=== PATIENT | female | born 1990 | race Caucasian/White ===

== ENCOUNTER 2016-07-05 09:02 | Emergency (ER) | payer OTHER ==
[2016-07-05 09:08] VITALS: BP 110/63
--- NOTE | 2016-07-05 09:32 | ER Document Report ---
HPI - HPI Pain Level: 3 Context: 26 yo female c/o rash to face and back x 2 days. developed after playing outside with her children. + known poison blake in yard. rash is pruritc and burning. no swelling to eyes or mouth. no difficulty speaking or swallowing. no cough or shortness of breath Associated Symptoms: None Exacerbated by: Denies Relieved by: Denies Similar symptoms previously: Yes Recently seen / treated by doctor: No - ROS Systems Reviewed and Negative: Yes All other systems reviewed and negative - REPRODUCTIVE Reproductive: DENIES: : - DERM Skin Color: Normal Past Medical History - General Information source: Patient - Social History Smoking Status: Current Every Day Smoker Chew tobacco use (# tins/day): No Frequency of alcohol use: Social Drug Abuse: None Lives with: Family Family History: Reviewed & Not Pertinent Patient has suicidal ideation: No Patient has homicidal ideation: No - Past Medical History Cardiac Medical History: Reports: None Neurological Medical History: Denies: Hx Seizures Renal/ Medical History: Denies: Hx Peritoneal Dialysis Psychiatric Medical History: Reports: Hx Attention Deficit Hyperactivity Disorder Past Surgical History: Denies: Hx Hysterectomy, Hx Pacemaker - Immunizations Hx Diphtheria, Pertussis, Tetanus Vaccination: No Vertical Provider Document - CONSTITUTIONAL Agree With Documented VS: Yes Exam Limitations: No Limitations - INFECTION CONTROL TRAVEL OUTSIDE OF THE [place] IN LAST 30 DAYS: No - HEENT HEENT: Atraumatic, PERRLA. negative: Pharyngeal Tenderness - NECK Neck: Normal Inspection, Supple - RESPIRATORY Respiratory: Breath Sounds Normal, No Respiratory Distress O2 Sat by Pulse Oximetry: 99 - CARDIOVASCULAR Cardiovascular: Regular Rate, Regular Rhythm - NEURO Level of Consciousness: Awake, Alert, Appropriate - DERM Integumentary: Warm, Dry, Rash - erythematous clustered vesicular rash to chin and upper mid back. not a dermatomal distribution Course - Vital Signs Vital signs: Temp Pulse Resp BP Pulse Ox 97.7 F 71 16 110/63 99 07/05/16 09:06 07/05/16 09:06 07/05/16 09:06 07/05/16 09:06 07/05/16 09:06 Discharge - Discharge Clinical Impression: Contact dermatitis Qualifiers: Contact dermatitis type: unspecified Contact dermatitis trigger: unspecified trigger Qualified Code(s): L25.9 - Unspecified contact dermatitis, unspecified cause Disposition: HOME, SELF-CARE Instructions: Contact Dermatitis ([facility]), Steroid Medication, Topical Steroid Cream or Ointment ([facility]), Use of Diphenhydramine Additional Instructions: Your exam is consistent with contact dermatitis Topical and Oral steroids as prescribed cool compresses with Domboro's solution prior to topical steroid application will expedite healing You may take oral Benadryl to help with itching Follow up with your primary care if symptoms do not improve or worsen Prescriptions: Calcium Acetate/Aluminum Sulf [[place] Packet] 1 packet TP TID PRN #30 packet PRN Reason: Hydrocortisone Valerate [Westcort] 1 applic TP BID #30 g Prednisone [Deltasone 10 mg Tablet] 10 mg PO ASDIR PRN #21 tablet PRN Reason:
== END 2016-07-05 09:32 | disposition home or self-care (01) ==
LOC: ER 09:02
DX: L25.9 Unspecified contact dermatitis, unspecified cause (principal); F17.200 Nicotine dependence, unspecified, uncomplicated
CPT/HCPCS: 99282

== ENCOUNTER 2017-09-05 05:25 | Emergency (ER) | payer OTHER ==
[2017-09-05] MEDS ORDERED: DIPH/PERTUSS(ACELL)/TETANUS VAC/PF 0.5 ML SYR (>=10YO) IM ONE (06:25)
--- NOTE | 2017-09-05 06:50 | RADIOLOGY REPORT (SQ) ---
EXAM DESCRIPTION: HAND RIGHT 3 VIEWS CLINICAL HISTORY: foreign body base 4th digit COMPARISON: None. FINDINGS: 3 views of the right hand. No acute fracture or dislocation. Normal osseous mineralization. No radiopaque foreign body identified. IMPRESSION: 1. No radiopaque foreign body identified.
[2017-09-05] MEDS ORDERED: LIDOCAINE 1% INJ-PF (10 MG/ML) 30 ML SDV INJ ONE (07:00)
--- NOTE | 2017-09-05 07:24 | ER Document Report ---
ED General - General Chief Complaint: Hand Injury Stated Complaint: RIGHT HAND PAIN Time Seen by Provider: 09/05/17 06:12 Mode of Arrival: Ambulatory Information source: Patient Notes: 27-year-old female presents with complaints of right hand pain. Patient notes she had a splinter in it about 3 or 4 weeks ago it was hurting a little bit but over the past week now it is hurting more intermittently will become red and then the redness goes away patient denies any fevers or chills denies any drainage she pulled the splinter out and said he was quite superficial TRAVEL OUTSIDE OF THE [place] IN LAST 30 DAYS: No - HPI Onset: Other Onset/Duration: Persistent Quality of pain: Achy Severity: Mild Pain Level: 1 Associated symptoms: Other Exacerbated by: Movement Relieved by: Denies Similar symptoms previously: No Recently seen / treated by doctor: No - Related Data Allergies/Adverse Reactions: poison blake extract Allergy (Verified 07/05/16 09:05) Past Medical History - Social History Smoking Status: Current Every Day Smoker Cigarette use (# per day): Yes Chew tobacco use (# tins/day): No Smoking Education Provided: No Frequency of alcohol use: Occasional Family History: Reviewed & Not Pertinent Patient has suicidal ideation: No Patient has homicidal ideation: No Neurological Medical History: Denies: Hx Seizures Renal/ Medical History: Denies: Hx Peritoneal Dialysis Psychiatric Medical History: Reports: Hx Attention Deficit Hyperactivity Disorder Past Surgical History: Reports: Hx Appendectomy, Hx Tonsillectomy. Denies: Hx Hysterectomy, Hx Pacemaker - Immunizations Hx Diphtheria, Pertussis, Tetanus Vaccination: No Review of Systems - Review of Systems Notes: REVIEW OF SYSTEMS: CONSTITUTIONAL : Denies fever, chills, or sweats. Denies recent illness. EENT: Denies eye, ear, throat, or mouth pain or symptoms. Denies nasal or sinus congestion or discharge. Denies throat, tongue, or mouth swelling or difficulty swallowing. CARDIOVASCULAR: Denies chest pain. Denies palpitations or racing or irregular heart beat. Denies ankle edema. RESPIRATORY: Denies cough, cold, or chest congestion. Denies shortness of breath, difficulty breathing, or wheezing. GASTROINTESTINAL: Denies abdominal pain or distention. Denies nausea, vomiting , or diarrhea. Denies blood in vomitus, stools, or per rectum. Denies black, tarry stools. Denies constipation. GENITOURINARY: Denies difficulty urinating, painful urination, burning, frequency, blood in urine, or discharge. FEMALE GENITOURINARY: Denies vaginal bleeding, heavy or abnormal periods, irregular periods. Denies vaginal discharge or odor. MUSCULOSKELETAL: Denies back or neck pain or stiffness. Denies joint pain or swelling. SKIN: Admits to right hand pain HEMATOLOGIC : Denies easy bruising or bleeding. LYMPHATIC: Denies swollen, enlarged glands. NEUROLOGICAL: Denies confusion or altered mental status. Denies passing out or loss of consciousness. Denies dizziness or lightheadedness. Denies headache. Denies weakness or paralysis or loss of use of either side. Denies problems with gait or speech. Denies sensory loss, numbness, or tingling. Denies seizures. PSYCHIATRIC: Denies anxiety or stress. Denies depression, suicidal ideation, or homicidal ideation. ALL OTHER SYSTEMS REVIEWED AND NEGATIVE. PHYSICAL EXAMINATION: GENERAL: Well-appearing, well-nourished and in no acute distress. HEAD: Atraumatic, normocephalic. EYES: Pupils equal round extraocular movements intact, conjunctiva are normal. ENT: Nares patent NECK: Normal range of motion LUNGS: No respiratory distress Musculoskeletal: Normal range of motion NEUROLOGICAL: Normal speech, normal gait. PSYCH: Normal mood, normal affect. SKIN: Scab with firm mass mid palmar fourth digit Dictation was performed using [employer] voice recognition software Physical Exam - Vital signs Vitals: Temp Pulse Resp BP Pulse Ox 97.8 F 71 20 124/67 99 09/05/17 05:54 09/05/17 05:54 09/05/17 05:54 09/05/17 05:54 09/05/17 05:54 Course - Re-evaluation Re-evalutation: 09/05/17 07:43 Area was anesthetized incise the patient's request, no foreign body was noted, x -ray also noted no foreign body, I believe this is all scar tissue related and is pushing on the tendon causing the patient pain, she has full range of motion. Station, she otherwise looks well, patient had been sleeping the whole time in the emergency department and only really woken to pain stimuli, Given that I did not find any foreign body, I did clean extensively to make sure they get infected, I will give her follow-up with orthopedic surgeon for further evaluation care After performing a Medical Screening Examination, I estimate there is LOW risk for OPEN FRACTURE, COMPARTMENT SYNDROME, TENDON RUPTURE, ACUTE NEUROVASCULAR INJURY, or RETAINED FOREIGN BODY, thus I consider the discharge disposition reasonable. Also, there is no evidence or peritonitis, sepsis, or toxicity. I have reevaluated this patient multiple times and no significant life threatening changes are noted. The patient and I have discussed the diagnosis and risks, and we agree with discharging home with close follow-up with the understanding that symptoms and presentations can change. We also discussed returning to the Emergency Department immediately if new or worsening symptoms occur. We have discussed the symptoms which are most concerning (e.g., changing or worsening pain, fever, numbness, weakness, cool or painful digits) that necessitate immediate return. - Vital Signs Vital signs: Temp Pulse Resp BP Pulse Ox 97.8 F 71 20 124/67 99 09/05/17 05:54 09/05/17 05:54 09/05/17 05:54 09/05/17 05:54 09/05/17 05:54 - Diagnostic Test Radiology reviewed: Image reviewed - No foreign body noted, Reports reviewed Procedures - Incision and Drainage Right Hand Time completed: 07:05 Type: Simple Anesthetic type: 1% Lidocaine mL's of anesthetic: 5 Blade size: 11 I&D procedure: Betadine prep applied, Sterile dressing applied Incision Method: Incision made by scalpel Amount/type of drainage: Small amount of blood noted no foreign body no pus Discharge - Discharge Clinical Impression: Hand pain, right Condition: Stable Disposition: HOME, SELF-CARE Additional Instructions: At this time no foreign body or pus is noted from the incision, return immediately if symptoms worsen please follow-up with the hand surgeon for further care Referrals: FABIEN WASHINGTON DO [ACTIVE STAFF] - Follow up as needed
[2017-09-05 08:29] VITALS: BP 118/76
== END 2017-09-05 08:07 | disposition home or self-care (01) ==
LOC: ER 05:25
PROC: 0H9FXZZ Drainage of Right Hand Skin, External Approach (ICD-10-PCS; principal; 2017-09-05)
DX: M79.641 Pain in right hand (principal); F17.210 Nicotine dependence, cigarettes, uncomplicated
CPT/HCPCS: 90715; 99284

== ENCOUNTER 2017-10-05 20:05 | Emergency (ER) | payer OTHER ==
[2017-10-05 20:19] VITALS: BP 113/56
--- NOTE | 2017-10-05 21:18 | ER Document Report ---
HPI - HPI Patient complains to provider of: Cough, abdominal pain Onset: Last week Onset/Duration: Persistent Quality of pain: Achy Pain Level: 3 Context: Patient presents complaining of nonproductive cough for the past month. Patient also reports nausea with right upper quadrant abdominal pain for the past week. Patient denies any fever. Associated Symptoms: Nonproductive cough, Nausea, Other - Abdominal pain. denies: Chest pain, Fever, Vomiting Exacerbated by: Denies Relieved by: Denies Similar symptoms previously: No Recently seen / treated by doctor: No - ROS ROS below otherwise negative: Yes Systems Reviewed and Negative: Yes All other systems reviewed and negative - CONSTITUTIONAL Constitutional: DENIES: Fever, Chills - EENT EENT: DENIES: Sore Throat, Ear Pain, Eye problems - NEURO Neurology: DENIES: Headache, Weakness, Vision blurred - RESPIRATORY Respiratory: REPORTS: Coughing. DENIES: Trouble Breathing - GASTROINTESTINAL Gastrointestinal: REPORTS: Abdominal Pain, Nausea. DENIES: Patient vomiting, Diarrhea, Black / Bloody Stools - URINARY Urinary: DENIES: Dysuria, Urgency, Frequency - REPRODUCTIVE Reproductive: DENIES: : - MUSCULOSKELETAL Musculoskeletal: DENIES: Extremity pain, Back Pain - DERM Skin Color: Normal Skin Problems: None Past Medical History - General Information source: Patient - Social History Smoking Status: Never Smoker Lives with: Family Family History: Reviewed & Not Pertinent Patient has suicidal ideation: No Patient has homicidal ideation: No Neurological Medical History: Denies: Hx Seizures Renal/ Medical History: Denies: Hx Peritoneal Dialysis Psychiatric Medical History: Reports: Hx Attention Deficit Hyperactivity Disorder Past Surgical History: Reports: Hx Appendectomy, Hx Tonsillectomy. Denies: Hx Hysterectomy, Hx Pacemaker - Immunizations Hx Diphtheria, Pertussis, Tetanus Vaccination: No Vertical Provider Document - CONSTITUTIONAL Agree With Documented VS: Yes Exam Limitations: No Limitations General Appearance: WD/WN, No Apparent Distress - INFECTION CONTROL TRAVEL OUTSIDE OF THE [place] IN LAST 30 DAYS: No - HEENT HEENT: Atraumatic, Normal ENT Exam, Normocephalic - NECK Neck: Normal Inspection, Supple - RESPIRATORY Respiratory: No Respiratory Distress, Chest Non-Tender, Rhonchi - clears with cough - CARDIOVASCULAR Cardiovascular: Regular Rate, Regular Rhythm, No Murmur - GI/ABDOMEN Gastrointestinal: Abdomen Soft, Abdomen Tender - RUQ, Normal Bowel Sounds. negative: Abdominal Guarding - BACK Back: Normal Inspection. negative: CVA Tenderness-Right, CVA Tenderness-Left - MUSCULOSKELETAL/EXTREMETIES Musculoskeletal/Extremeties: JACQUI GONZALEZ - NEURO Level of Consciousness: Awake, Alert, Appropriate Motor/Sensory: No Motor Deficit - DERM Integumentary: Warm, Dry, No Rash Course - Re-evaluation Re-evalutation: 10/06/17 00:30 Patient updated regarding the wait time as we are having technical difficulties in obtaining radiology reports. Patient resting comfortably denies any needs at this time. 10/06/17 01:30 Patient not in room 31 where patient was left by RN, patient not in the main waiting room either, RN suspects that patient eloped. 10/06/17 03:48 Reviewed patient's ultrasound findings as well as diagnostic tests with Dr. Alas. States that patient should be advised to follow-up with surgeon as an outpatient. Patient called and advised of ultrasound report and need for prompt follow-up with a surgeon. Discussed worsening signs or symptoms that patient should return immediately for. Patient verbalized understanding and is appreciative of call. Patient was getting outpatient surgical clinic office number and address. - Vital Signs Vital signs: Temp Pulse Resp BP Pulse Ox 98.2 F 67 18 113/56 L 97 10/05/17 20:15 10/05/17 20:15 10/05/17 20:15 10/05/17 20:15 10/05/17 20:15 - Laboratory Result Diagrams: 10/05/17 21:35 10/05/17 21:35 Laboratory results interpreted by me: 10/06/17 02:18 Labs- Entire Visit 10/05/17 10/05/17 10/05/17 21:35 21:35 21:35 WBC 9.4 RBC 4.84 Hgb 14.0 Hct 41.7 MCV 86 MCH 28.9 MCHC 33.6 RDW 13.3 Plt Count 220 Seg Neutrophils % 60.1 Lymphocytes % 30.0 Monocytes % 7.4 Eosinophils % 1.4 Basophils % 1.1 Absolute Neutrophils 5.7 Absolute Lymphocytes 2.8 Absolute Monocytes 0.7 Absolute Eosinophils 0.1 Absolute Basophils 0.1 Sodium 144.2 Potassium 4.8 Chloride 106 Carbon Dioxide 31 H Anion Gap 7 BUN 10 Creatinine 0.52 Est GFR ( Amer) > 60 Est GFR (Non-Af Amer) > 60 Glucose 99 Calcium 9.3 Total Bilirubin 0.1 L Direct Bilirubin 0.1 Neonat Total Bilirubin Not Reportable Neonat Direct Bilirubin Not Reportable Neonat Indirect Bili Not Reportable AST 26 ALT 38 Alkaline Phosphatase 82 Total Protein 6.9 Albumin 4.1 Lipase 95.6 Serum HCG, Qual NEGATIVE Urine Color Urine Appearance Urine pH Ur Specific [place] Urine Protein Urine Glucose (UA) Urine Ketones Urine Blood Urine Nitrite Urine Bilirubin Urine Urobilinogen Ur Leukocyte Esterase Urine WBC (Auto) Urine RBC (Auto) Amorphous Sediment Auto Urine Mucus (Auto) Urine Ascorbic Acid 10/05/17 21:35 WBC RBC Hgb Hct MCV MCH MCHC RDW Plt Count Seg Neutrophils % Lymphocytes % Monocytes % Eosinophils % Basophils % Absolute Neutrophils Absolute Lymphocytes Absolute Monocytes Absolute Eosinophils Absolute Basophils Sodium Potassium Chloride Carbon Dioxide Anion Gap BUN Creatinine Est GFR ( Amer) Est GFR (Non-Af Amer) Glucose Calcium Total Bilirubin Direct Bilirubin Neonat Total Bilirubin Neonat Direct Bilirubin Neonat Indirect Bili AST ALT Alkaline Phosphatase Total Protein Albumin Lipase Serum HCG, Qual Urine Color YELLOW Urine Appearance SLIGHTLY-CLOUDY Urine pH 6.0 Ur Specific [place] 1.025 Urine Protein NEGATIVE Urine Glucose (UA) NEGATIVE Urine Ketones NEGATIVE Urine Blood NEGATIVE Urine Nitrite NEGATIVE Urine Bilirubin NEGATIVE Urine Urobilinogen 4.0 H Ur Leukocyte Esterase SMALL H Urine WBC (Auto) 45 Urine RBC (Auto) 4 Amorphous Sediment Auto TRACE Urine Mucus (Auto) MANY Urine Ascorbic Acid 40 H - Diagnostic Test Radiology reviewed: Reports reviewed Discharge - Discharge Clinical Impression: Abdominal pain Qualifiers: Abdominal location: right upper quadrant Qualified Code(s): R10.11 - Right upper quadrant pain Upper respiratory infection Qualifiers: URI type: unspecified URI Qualified Code(s): J06.9 - Acute upper respiratory infection, unspecified Disposition: ELOPED
[2017-10-05 21:56] LABS: ABSOLUTE EOSINOPHILS # (AUTO) 0.1 10^3/uL (0.0-0.6); ABSOLUTE LYMPHOCYTES (AUTO) 2.8 10^3/uL (0.5-4.7); ABSOLUTE MONOCYTES (AUTO) 0.7 10^3/uL (0.1-1.4); ABSOLUTE NEUT (AUTO) 5.7 10^3/uL (1.7-8.2); BASOPHILS % (AUTO) 1.1 % (0-2); EOSINOPHILS % (AUTO) 1.4 % (0-6); HEMATOCRIT 41.7 % (36.0-47.0); MEAN CORPUSCULAR HEMOGLOBIN 28.9 pg (27.0-33.4); MEAN CORPUSCULAR HGB CONC 33.6 g/dL (32.0-36.0); MEAN CORPUSCULAR VOLUME 86 fl (80-97); MONOCYTES % (AUTO) 7.4 % (3-13); PLATELET COUNT 220 10^3/uL (150-450); RED BLOOD COUNT 4.84 10^6/uL (3.72-5.28); RED CELL DISTRIBUTION WIDTH 13.3 % (11.5-14.0); SEGMENTED NEUTROPHILS % (AUTO) 60.1 % (42-78); TOTAL CELLS COUNTED % (AUTO) 100 %; WHITE BLOOD COUNT 9.4 10^3/uL (4.0-10.5)
[2017-10-05 21:57] LABS: ABSOLUTE BASOPHILS # (AUTO) 0.1 10^3/uL (0.0-0.2)
[2017-10-05 22:07] LABS: AMORPHOUS SEDIMENT,URINE TRACE /HPF; APPEARANCE,URINE SLIGHTLY-CLOUDY; BILIRUBIN,URINE NEGATIVE (NEGATIVE); COLOR,URINE YELLOW; GLUCOSE, URINE NEGATIVE (NEGATIVE); KETONES,URINE NEGATIVE (NEGATIVE); LEUKOCYTE ESTERASE,URINE SMALL (NEGATIVE); NITRITE,URINE NEGATIVE (NEGATIVE); PROTEIN,URINE NEGATIVE (NEGATIVE); URINE SPECIFIC GRAVITY 1.025
[2017-10-05 22:10] LABS: ALANINE AMINOTRANSFERASE 38 U/L (9-52); ALBUMIN 4.1 g/dL (3.5-5.0); ALKALINE PHOSPHATASE 82 U/L (38-126); ANION GAP 7 (5-19); ASPARTATE AMINO TRANSFERASE 26 U/L (14-36); BILIRUBIN,DIRECT 0.1 mg/dL (0.0-0.4); BILIRUBIN,TOTAL 0.1 mg/dL (0.2-1.3); BLOOD UREA NITROGEN 10 mg/dL (7-20); CALCIUM 9.3 mg/dL (8.4-10.2); CARBON DIOXIDE 31 mmol/L (22-30); CHLORIDE 106 mmol/L (98-107); GLUCOSE 99 mg/dL (75-110); LIPASE 95.6 U/L (23-300); POTASSIUM 4.8 mmol/L (3.6-5.0); SODIUM 144.2 mmol/L (137-145); TOTAL PROTEIN 6.9 g/dL (6.3-8.2)
--- NOTE | 2017-10-05 22:20 | RADIOLOGY REPORT (SQ) ---
EXAM DESCRIPTION: CHEST 2 VIEWS COMPLETED DATE/TIME: 10/05/2017 9:51 pm REASON FOR STUDY: RUQ pain COMPARISON: None. EXAM PARAMETERS: NUMBER OF VIEWS: two views TECHNIQUE: Digital Frontal and Lateral radiographic views of the chest acquired. RADIATION DOSE: NA LIMITATIONS: none FINDINGS: LUNGS AND PLEURA: No opacities, masses or pneumothorax. No pleural effusion. MEDIASTINUM AND HILAR STRUCTURES: No masses or contour abnormalities. HEART AND VASCULAR STRUCTURES: Heart normal size. No evidence for failure. BONES: No acute findings. Old left lateral 10th rib fracture. HARDWARE: None in the chest. OTHER: No other significant finding. IMPRESSION: NO ACUTE RADIOGRAPHIC FINDING IN THE CHEST. TECHNICAL DOCUMENTATION: JOB ID: [id number] [id number] 2010 [employer]- All Rights Reserved Reading location - IP/workstation name: [employer]
--- NOTE | 2017-10-06 03:10 | RADIOLOGY REPORT (SQ) ---
EXAM DESCRIPTION: U/S ABDOMEN LIMITED W/O DOP COMPLETED DATE/TIME: 10/05/2017 11:00 pm REASON FOR STUDY: RUQ pain COMPARISON: None. TECHNIQUE: Dynamic and static grayscale images acquired of the abdomen and recorded on PACS. Kyrao sadie selected color Doppler and spectral images recorded. LIMITATIONS: None. FINDINGS: PANCREAS: No masses. Visualized pancreatic duct normal caliber. LIVER: No masses. Echotexture normal. LIVER VASCULATURE: Normal directional flow of the main portal vein and hepatic veins. GALLBLADDER: Contracted. Thickened wall at 3.4 mm. No identified stones. ULTRASOUND-DETECTED COOL'S SIGN: Negative. INTRAHEPATIC DUCTS AND COMMON DUCT: CBD and intrahepatic ducts normal caliber. No filling defects. INFERIOR VENA CAVA: Normal flow. AORTA: No aneurysm. RIGHT KIDNEY: Normal size. Normal echogenicity. No solid or suspicious masses. No hydronephrosis. No calcifications. PERITONEAL AND RIGHT PLEURAL SPACE: No ascites or effusions. OTHER: No other significant findings. IMPRESSION: Contracted gallbladder with thickened wall. No obvious stones. TECHNICAL DOCUMENTATION: JOB ID: [id number] [employer]- All Rights Reserved Reading location - IP/workstation name: [email or web address]
== END 2017-10-06 00:20 | disposition left against medical advice (07) ==
LOC: ER 20:05
DX: J06.9 Acute upper respiratory infection, unspecified (principal); R10.11 Right upper quadrant pain; R05 Cough; R11.0 Nausea; Z90.49 Acquired absence of other specified parts of digestive tract; Z53.20 Procedure and treatment not carried out because of patient's decision for unspecified reasons
CPT/HCPCS: 36415; 71046; 76705; 80053; 81001; 83690; 84703; 85025; 87086; 99281

== ENCOUNTER 2017-10-06 14:40 | Emergency (ER) | payer OTHER ==
--- NOTE | 2017-10-06 16:11 | ER Document Report ---
HPI - HPI Pain Level: 4 Notes: Patient is a 27-year-old female who presents to the ED complaining of right upper quadrant pain over the last 2 weeks with an occasional cough. Patient was evaluated last night but eloped prior to her imaging results being read as radiology was having technological issues. Patient was called this morning and according to the notes the conversation read that she was to follow-up with surgery as an outpatient. Patient instead presented here. Patient states that she has not had any acute changes in her symptoms. She is still able to eat and drink without any difficulties. She is urinating normally. Patient does state that she does have some loose stool. She denies any drug allergies. Patient does admit to smoking but denies IV drug use. Her ultrasound from yesterday read contracted bladder with thickening of the wall without gallstones. Her CBC, CMP were unremarkable for any acute pathology. Denies any headache, fever, neck pain, URI, sore throat, chest pain, palpitations, syncope, cough, shortness of breath, wheeze, dyspnea, nausea/vomiting, urinary retention, dysuria, hematuria, back pain, loss of control of bowel or bladder, numbness/tingling, muscle paralysis/weakness, or rash. - ROS Systems Reviewed and Negative: Yes All other systems reviewed and negative - REPRODUCTIVE Reproductive: DENIES: : Past Medical History - Social History Smoking Status: Current Every Day Smoker Family History: Reviewed & Not Pertinent Neurological Medical History: Denies: Hx Seizures Renal/ Medical History: Denies: Hx Peritoneal Dialysis Psychiatric Medical History: Reports: Hx Attention Deficit Hyperactivity Disorder Past Surgical History: Reports: Hx Appendectomy, Hx Tonsillectomy. Denies: Hx Hysterectomy, Hx Pacemaker - Immunizations Hx Diphtheria, Pertussis, Tetanus Vaccination: No Vertical Provider Document - CONSTITUTIONAL Agree With Documented VS: Yes Notes: PHYSICAL EXAMINATION: GENERAL: Well-appearing, well-nourished and in no acute distress. Answers questions appropriately. Moves comfortably. HEAD: Atraumatic, normocephalic. EYES: Pupils equal round and reactive to light, extraocular movements intact, sclera anicteric, conjunctiva are normal. ENT: Nares patent and without discharge. oropharynx clear without exudates. No tonsilar hypertrophy or erythema. Moist mucous membranes. NECK: Normal range of motion, supple without lymphadenopathy LUNGS: Breath sounds clear to auscultation bilaterally and equal. No wheezes rales or rhonchi. HEART: Regular rate and rhythm without murmurs, rubs, gallops. ABDOMEN: Soft, nontender, nondistended abdomen. No guarding, no rebound. No masses appreciated. Normal bowel sounds present. No CVA tenderness bilaterally. Urena negative. No tenderness at McBurney point. Musculoskeletal: FROM to passive/active. Strength 5+/5. Extremities: No cyanosis, clubbing, or edema b/l. Peripheral pulses 2+. Capillary refill less than 3 seconds. NEUROLOGICAL: Normal speech, normal gait. Normal sensory, motor exams PSYCH: Normal mood, normal affect. SKIN: Warm, Dry, normal turgor, no rashes or lesions noted. - INFECTION CONTROL TRAVEL OUTSIDE OF THE [place] IN LAST 30 DAYS: No Course - Re-evaluation Re-evalutation: 10/06/17 16:13 Patient is an afebrile, well-hydrated, 27-year-old female who presents to the ED with right upper quadrant pain, suspect possible gallbladder etiology. Vitals are acceptable. PE is otherwise unremarkable. I did review previous labs and imaging from last night and I did consult with the surgeon Dr. Ceballos. He states that she will need to be n.p.o. for 12 hours with a recheck of an ultrasound at that time as you cannot have a thickened wall with a contracted gallbladder, but this can be done as an outpatient and follow-up in their office. Patient is tolerating p.o. without any difficulties. Her abdomen is otherwise soft and nontender at this time. Lab work was unremarkable from last evening. Her last p.o. intake was 1-2 hours ago. Conservative measures otherwise for symptoms. Recheck with a general surgeon's office in 2-3 days. Recheck with your PCM in 1 week as well. Return to the ED with any worsening/ concerning symptoms otherwise as reviewed discharge. Patient is in agreement. - Vital Signs Vital signs: Temp Pulse Resp BP Pulse Ox 98.0 F 70 20 132/79 H 99 10/06/17 14:43 10/06/17 14:43 10/06/17 14:43 10/06/17 14:43 10/06/17 14:43 Discharge - Discharge Clinical Impression: RUQ pain Condition: Stable Disposition: HOME, SELF-CARE Instructions: Low-Fat Diet ([facility]) Additional Instructions: Remain NPO for 12 hours then repeat the US. Schedule an appointment with general surgery later this week Low fat diet Maintain fluid intake Tylenol/ibuprofen as needed Monitor symptoms Recheck with PCM in 1 week as well Return to the ED with any worsening symptoms and/or development of fever, headache, chest pain, palpitations, syncope, shortness of breath, trouble breathing, abdominal pain, n/v/d, blood in stool/urine, loss of control of bowel /bladder, urinary retention, muscle weakness/paralysis, saddle anesthesia, numbness/tingling, or other worsening symptoms that are concerning to you. Forms: Follow-Up Radiology Testing Referrals: ANA CRISTINA MCKEE MD [ACTIVE STAFF] - Follow up in 3-5 days
[2017-10-06] MEDS ORDERED: HYDROCODONE/ACETAMINOPHEN 5-325 MG (6 TAB/ER DISP) PO PRN (16:20)
[2017-10-06 16:44] VITALS: BP 115/81
== END 2017-10-06 16:45 | disposition home or self-care (01) ==
LOC: ER 14:40
DX: R10.11 Right upper quadrant pain (principal); R05 Cough; F17.200 Nicotine dependence, unspecified, uncomplicated
CPT/HCPCS: 99283

== ENCOUNTER 2018-03-18 07:45 | Emergency (ER) | payer OTHER ==
[2018-03-18 07:54] VITALS: BP 131/83
[2018-03-18] MEDS ORDERED: IBUPROFEN 800 MG TABLET PO ONE (08:05)
[2018-03-18] MEDS ORDERED: PSEUDOEPHEDRINE HCL 30 MG TABLET PO ONE (08:05)
--- NOTE | 2018-03-18 08:06 | ER Document Report ---
HPI - HPI Patient complains to provider of: Cough Onset: Other - 2 weeks Onset/Duration: Persistent Quality of pain: Achy Pain Level: 4 Context: Patient presents complaining of cough for the past 2 weeks. Patient states she has had some sinus congestion. Patient denies any fever. Patient also complains of pruritic skin rash to her neck and was around someone who had been in contact with poison blake. Patient suspects that she has poison blake to her neck. Associated Symptoms: Nonproductive cough, Sinus pain/drainage. denies: Earache , Fever Exacerbated by: Denies Relieved by: Denies Similar symptoms previously: Yes Recently seen / treated by doctor: No - ROS ROS below otherwise negative: Yes Systems Reviewed and Negative: Yes All other systems reviewed and negative - CONSTITUTIONAL Constitutional: DENIES: Fever - EENT EENT: REPORTS: Nasal Drainage-Clear, Congestion - CARDIOVASCULAR Cardiovascular: DENIES: Chest pain - RESPIRATORY Respiratory: REPORTS: Coughing. DENIES: Trouble Breathing - GASTROINTESTINAL Gastrointestinal: DENIES: Nausea, Patient vomiting - REPRODUCTIVE Reproductive: DENIES: : - MUSCULOSKELETAL Musculoskeletal: DENIES: Back Pain - DERM Skin Color: Normal Skin Problems: Rash Past Medical History - General Information source: Patient - Social History Smoking Status: Current Every Day Smoker Smoking Education Provided: Yes Frequency of alcohol use: Occasional Drug Abuse: Marijuana Occupation: none Lives with: Family Family History: Reviewed & Not Pertinent - Medical History Medical History: Negative Neurological Medical History: Denies: Hx Seizures Renal/ Medical History: Denies: Hx Peritoneal Dialysis Psychiatric Medical History: Reports: Hx Attention Deficit Hyperactivity Disorder Past Surgical History: Reports: Hx Appendectomy, Hx Gynecologic Surgery - ectopic, Hx Tonsillectomy. Denies: Hx Hysterectomy, Hx Pacemaker - Immunizations Hx Diphtheria, Pertussis, Tetanus Vaccination: No Vertical Provider Document - CONSTITUTIONAL Agree With Documented VS: Yes Exam Limitations: No Limitations General Appearance: WD/WN, No Apparent Distress - INFECTION CONTROL TRAVEL OUTSIDE OF THE [place] IN LAST 30 DAYS: No - HEENT HEENT: Atraumatic, Normocephalic. negative: Pharyngeal Exudate, Pharyngeal Tenderness, Pharyngeal Erythema, Tympanic Membrane Red, Tympanic Membrane Bulging Notes: clear rhinorrhea - NECK Neck: Normal Inspection, Supple. negative: Lymphadenopathy-Left, Lymphadenopathy-Right - RESPIRATORY Respiratory: No Respiratory Distress, Chest Non-Tender, Rhonchi - CARDIOVASCULAR Cardiovascular: Regular Rate, Regular Rhythm, No Murmur - GI/ABDOMEN Gastrointestinal: Abdomen Soft, Abdomen Non-Tender - BACK Back: Normal Inspection - MUSCULOSKELETAL/EXTREMETIES Musculoskeletal/Extremeties: JACQUI GONZALEZ - NEURO Level of Consciousness: Awake, Alert, Appropriate Motor/Sensory: No Motor Deficit - DERM Integumentary: Warm, Dry, No Rash Course - Re-evaluation Re-evalutation: 03/18/18 08:52 Patient respirations unlabored, patient continues with occasional dry cough, no concern for pneumonia or pneumothorax. Good return precautions given. - Vital Signs Vital signs: Temp Pulse Resp BP Pulse Ox 98.1 F 108 H 20 131/83 H 97 03/18/18 07:51 03/18/18 07:51 03/18/18 07:51 03/18/18 07:51 03/18/18 07:51 - Diagnostic Test Radiology reviewed: Reports reviewed Discharge - Discharge Clinical Impression: Bronchitis Contact dermatitis Qualifiers: Contact dermatitis type: unspecified Contact dermatitis trigger: non-food plants Qualified Code(s): L25.5 - Unspecified contact dermatitis due to plants, except food Condition: Stable Disposition: HOME, SELF-CARE Additional Instructions: Return immediately for any new or worsening symptoms Followup with your primary care provider, call tomorrow to make a followup appointment BRONCHITIS: You have acute bronchitis. This disease is an infection or inflammation of the air passageways in your lungs. Symptoms usually include cough, low grade fever, shortness of breath, and wheezing. The cough usually persists for a couple of weeks. Most cases of bronchitis get better without antibiotics. We prescribe antibiotics when we believe bacteria are damaging your airways, or if there's high risk the bronchitis will worsen into pneumonia. Increase your fluid intake. A cool mist humidifier may make your lungs more comfortable. An expectorant (cough medicine that loosens phlegm) can help. If you smoke, STOP!!! Recovery from bronchitis can be somewhat slow, but you should see improvement within a day or two. Repeated episodes of bronchitis may result in lung damage -- for example, chronic bronchitis, recurrent pneumonias, or emphysema. Call the doctor if you develop increasing fever, shortness of breath, chest pain, bloody sputum, or otherwise worsen. If you have not improved at all after several days, contact the physician. INHALED BRONCHODILATORS: You have received a treatment of and/or prescription for an inhaled bronchodilator -- a medication which stimulates the airways in the lung to dilate. This improves the flow of air in asthma, bronchitis, and emphysema. These medicines have some similarity to adrenaline, and can cause similar side effects: shakiness, racing heart, and a sense of nervousness. These side effects decrease with time. Contact your doctor if these side effects are severe. Do not over-use the medicine. Too-frequent use of the inhaler may make it ineffective. Call your doctor if the inhaler is not controlling your symptoms at the prescribed doses. STEROID MEDICATION: You have been given an injection of or oral medicine of the cortisone/ steroid class. This medication is used to control inflammation or allergy. José Miguel t is usually only given for a short period of time, until the acute process subsides. There are usually no side effects from short-term use of cortisone-like medications. Some persons feel an increased sense of well-being and are not sleepy at bedtime. Long-term use of cortisone medications is best avoided, unless required for a severe condition. If your condition does not remit, or relapses after the course of corticosteroid medication, you should consult your physician. USE OF ACETAMINOPHEN (Tylenol): Acetaminophen may be taken for pain relief or fever control. It's much safer than aspirin, offering a wider range of "safe" dosages. It is safe during . Some brand names are Tylenol, Panadol, Datril, Anacin 3, Tempra, and Liquiprin. Acetaminophen can be repeated every four hours. The following are maximum recommended dosages: >89 pounds or adults 650 mg to 900 mg Acetaminophen can be repeated every four hours. Maximum dose not to exceed 4000 mg a day. SMOKING: If you smoke, you should stop smoking. The tar and chemicals in cigarette smoke are harmful. Smoking has been shown to cause: emphysema chronic bronchitis lung cancer mouth and throat cancer stomach and pancreas cancer premature aging defects In addition, smoking increases ear and lung infections in children of smokers. FOLLOW-UP CARE: If you have been referred to a physician for follow-up care, call the physician s office for an appointment as you were instructed or within the next two days. If you experience worsening or a significant change in your symptoms, notify the physician immediately or return to the Emergency Department at any time for re-evaluation. Prescriptions: Albuterol Sulfate [Ventolin Hfa] 2 puff IH Q4HP PRN #17 gm PRN Reason: Dextromethorphan Polistirex [Delsym] 60 mg PO Q12 PRN #120 ml PRN Reason: Naproxen [Naprosyn 250 Nmg Tablet] 1 tab PO BID #14 tablet Prednisone [Deltasone 10 mg Tablet] 10 mg PO ASDIR PRN #21 tablet PRN Reason: Forms: Smoking Cessation Education Referrals: [facility] [Provider Group] - Follow up tomorrow
--- NOTE | 2018-03-18 08:45 | RADIOLOGY REPORT (SQ) ---
EXAM DESCRIPTION: CHEST 2 VIEWS COMPLETED DATE/TIME: 03/18/2018 8:29 am REASON FOR STUDY: cough COMPARISON: None. EXAM PARAMETERS: NUMBER OF VIEWS: two views TECHNIQUE: Digital Frontal and Lateral radiographic views of the chest acquired. RADIATION DOSE: NA LIMITATIONS: none FINDINGS: LUNGS AND PLEURA: No opacities, masses or pneumothorax. No pleural effusion. MEDIASTINUM AND HILAR STRUCTURES: No masses or contour abnormalities. HEART AND VASCULAR STRUCTURES: Heart normal size. No evidence for failure. BONES: No acute findings. HARDWARE: None in the chest. OTHER: No other significant finding. IMPRESSION: NO ACUTE RADIOGRAPHIC FINDING IN THE CHEST. TECHNICAL DOCUMENTATION: JOB ID: [id number] [employer]- All Rights Reserved Reading location - IP/workstation name: [email or web address]
== END 2018-03-18 09:11 | disposition home or self-care (01) ==
LOC: ER 07:45
DX: J40 Bronchitis, not specified as acute or chronic (principal); L25.5 Unspecified contact dermatitis due to plants, except food; F17.200 Nicotine dependence, unspecified, uncomplicated
CPT/HCPCS: 71046; 99283

== ENCOUNTER 2018-05-09 14:28 | Emergency (ER) | payer OTHER ==
[2018-05-09] MEDS ORDERED: RINGERS SOLUTION,LACTATED 1,000 ML IV ONE (15:40)
[2018-05-09 16:09] LABS: APPEARANCE,URINE SLIGHTLY-CLOUDY; BILIRUBIN,URINE NEGATIVE (NEGATIVE); COLOR,URINE YELLOW; GLUCOSE, URINE NEGATIVE (NEGATIVE); KETONES,URINE NEGATIVE (NEGATIVE); LEUKOCYTE ESTERASE,URINE TRACE (NEGATIVE); NITRITE,URINE NEGATIVE (NEGATIVE); PROTEIN,URINE NEGATIVE (NEGATIVE); URINE SPECIFIC GRAVITY 1.018
--- NOTE | 2018-05-09 16:09 | RADIOLOGY REPORT (SQ) ---
EXAM DESCRIPTION: HAND BILATERAL 3 VIEWS COMPLETED DATE/TIME: 05/09/2018 4:00 pm REASON FOR STUDY: pain injury COMPARISON: None. EXAM PARAMETERS: NUMBER OF VIEWS: Three views right hand. Three views left hand. TECHNIQUE: AP, lateral and oblique radiographic images acquired of bilateral hands. LIMITATIONS: None. FINDINGS: RIGHT HAND: MINERALIZATION: Normal. BONES: No acute fracture or dislocation. No worrisome bone lesions. No significant osteophytes. JOINTS: No erosions. No randolph-articular osteopenia. No chondrocalcinosis. SOFT TISSUES: No swelling. No calcifications. OTHER: No other significant finding. LEFT HAND: MINERALIZATION: Normal. BONES: No acute fracture or dislocation. No worrisome bone lesions. No significant osteophytes. JOINTS: No erosions. No randolph-articular osteopenia. No chondrocalcinosis. SOFT TISSUES: No swelling. No calcifications. OTHER: No other significant finding. IMPRESSION: NEGATIVE STUDY BILATERAL HANDS. NO ACUTE POST-TRAUMATIC CHANGES. NO EXPLANATION FOR PAIN . TECHNICAL DOCUMENTATION: JOB ID: [id number] [employer]- All Rights Reserved Reading location - IP/workstation name: [email or web address]
[2018-05-09 16:15] LABS: ANION GAP 12 (5-19); BLOOD UREA NITROGEN 11 mg/dL (7-20); CALCIUM 9.4 mg/dL (8.4-10.2); CARBON DIOXIDE 27 mmol/L (22-30); CHLORIDE 101 mmol/L (98-107); GLUCOSE 89 mg/dL (75-110); POTASSIUM 4.8 mmol/L (3.6-5.0); SODIUM 139.7 mmol/L (137-145)
[2018-05-09 16:24] LABS: ALCOHOL < 10 mg/dL (NONE DETECTED)
--- NOTE | 2018-05-09 17:19 | ER Document Report ---
ED General - General Chief Complaint: Dizziness Stated Complaint: HAND INJURY Time Seen by Provider: 05/09/18 15:34 TRAVEL OUTSIDE OF THE [place] IN LAST 30 DAYS: No - HPI Patient complains to provider of: Dizziness and hand injury Notes: Patient coming in for multiple complaints. Patient states dizziness and feeling dehydrated states that she was drinking alcohol heavily at night prior to arrival. Patient also is coming from bilateral hand injury. Patient states her right hand was injured approximate 4 days ago whenever she was helping friends cabinetry states that her hand got caught between the rectum and treat his obvious abrasions across all 4 fingers including the thumb. Patient also has a small abrasion to the right hand on the index finger patient states this occurred in another incident however does not reveal any other information. Patient otherwise looks to be nontoxic upon my evaluation resting comfortably - Related Data Allergies/Adverse Reactions: No Known Drug Allergies Allergy (Verified 05/09/18 15:26) poison blake extract Allergy (Verified 05/09/18 15:26) Past Medical History - Social History Smoking Status: Current Every Day Smoker Frequency of alcohol use: Social Drug Abuse: Methamphetamine Family History: Reviewed & Not Pertinent Patient has suicidal ideation: No Patient has homicidal ideation: No Neurological Medical History: Denies: Hx Seizures Renal/ Medical History: Denies: Hx Peritoneal Dialysis Psychiatric Medical History: Reports: Hx Attention Deficit Hyperactivity Disorder Past Surgical History: Reports: Hx Appendectomy, Hx Gynecologic Surgery - ectopic, Hx Tonsillectomy. Denies: Hx Hysterectomy, Hx Pacemaker - Immunizations Hx Diphtheria, Pertussis, Tetanus Vaccination: No Review of Systems - Review of Systems Constitutional: Other - Dizziness EENT: No symptoms reported Cardiovascular: No symptoms reported Respiratory: No symptoms reported Gastrointestinal: No symptoms reported Genitourinary: No symptoms reported Female Genitourinary: No symptoms reported Musculoskeletal: Other - Bilateral hand injuries Skin: No symptoms reported Hematologic/Lymphatic: No symptoms reported Neurological/Psychological: No symptoms reported -: Yes All other systems reviewed and negative Physical Exam - Vital signs Vitals: Temp Pulse Resp BP Pulse Ox 98.4 F 77 18 117/67 100 05/09/18 14:35 05/09/18 14:35 05/09/18 14:35 05/09/18 14:35 05/09/18 14:35 Interpretation: Normal - General General appearance: Appears well, Alert - HEENT Head: Normocephalic, Atraumatic Eyes: Normal Pupils: PERRL - Respiratory Respiratory status: No respiratory distress Chest status: Nontender Breath sounds: Normal Chest palpation: Normal - Cardiovascular Rhythm: Regular Heart sounds: Normal auscultation Murmur: No - Abdominal Inspection: Normal Distension: No distension Bowel sounds: Normal Tenderness: Nontender Organomegaly: No organomegaly - Back Back: Normal, Nontender - Extremities General upper extremity: Nontender, Normal color, Normal ROM, Normal temperature. No: Normal inspection - Multiple abrasions across the second third fourth fifth digits on the right hand small abrasion on the second digit on left hand range of motion bilateral hands is slowed but is intact. Capillary refill bilateral hands is intact as well General lower extremity: Normal inspection, Nontender, Normal color, Normal ROM , Normal temperature, Normal weight bearing. No: Cristi's sign - Neurological Neuro grossly intact: Yes Cognition: Normal Orientation: AAOx4 Aiden Coma Scale Eye Opening: Spontaneous [place] Coma Scale Verbal: Oriented [place] Coma Scale Motor: Obeys Commands [place]iden Coma Scale Total: 15 Speech: Normal Motor strength normal: LUE, RUE, LLE, RLE Sensory: Normal - Psychological Associated symptoms: Normal affect, Normal mood - Skin Skin Temperature: Warm Skin Moisture: Dry Skin Color: Normal Course - Re-evaluation Re-evalutation: 05/09/18 19:25 X-rays are negative for any acute fracture. Examination of the hands other than the abrasion site no signs of any significant pathology. Patient laboratory studies also not reveal any critical pathology. Patient was given Compazine for home for any nausea and dizziness that she may experience. Patient is recommended to stay well-hydrated abstaining from alcohol return to ER symptoms worsen. - Vital Signs Vital signs: Temp Pulse Resp BP Pulse Ox 98.2 F 58 L 16 115/73 100 05/09/18 17:22 05/09/18 17:22 05/09/18 17:22 05/09/18 17:22 05/09/18 17:22 - Laboratory Result Diagrams: 05/09/18 15:48 Laboratory results interpreted by me: 05/09/18 15:48 Urine Urobilinogen 2.0 H Ur Leukocyte Esterase TRACE H Discharge - Discharge Clinical Impression: Bilateral hand abrasions, Dizziness Condition: Good Disposition: HOME, SELF-CARE Instructions: Abrasions ([facility]), Dizziness ([facility]) Additional Instructions: Your x-rays did not show any signs of fracture at this time. Would recommend placing triple antibiotic ointment on your abrasions. Laboratory studies not show any critical pathology at this time please make sure you are drinking plenty of fluids to stay well-hydrated I would abstain from drinks that are high caffeine also abstain from any alcohol. Prescriptions: Ibuprofen [Motrin 600 mg Tablet] 600 mg PO Q8HP PRN #21 tablet PRN Reason: Prochlorperazine Maleate [Compazine] 5 mg PO Q6 #30 tablet Prochlorperazine Maleate [Compazine] 5 mg PO Q6 #30 tablet Forms: Return to Work
[2018-05-09 17:24] VITALS: BP 115/73
== END 2018-05-09 17:24 | disposition home or self-care (01) ==
LOC: ER 14:28
DX: S60.512A Abrasion of left hand, initial encounter (principal); S60.511A Abrasion of right hand, initial encounter; R42 Dizziness and giddiness; X58.XXXA Exposure to other specified factors, initial encounter; F17.200 Nicotine dependence, unspecified, uncomplicated
CPT/HCPCS: 99284; 96360; 36415; 80307; 84703; 80048; 81001; 73130; J7120

== ENCOUNTER 2018-08-09 22:29 | Emergency (ER) | payer OTHER ==
[2018-08-10 05:05] LABS: ABSOLUTE BASOPHILS # (AUTO) 0.1 10^3/uL (0.0-0.2); ABSOLUTE EOSINOPHILS # (AUTO) 0.1 10^3/uL (0.0-0.6); ABSOLUTE LYMPHOCYTES (AUTO) 2.1 10^3/uL (0.5-4.7); ABSOLUTE MONOCYTES (AUTO) 0.6 10^3/uL (0.1-1.4); ABSOLUTE NEUT (AUTO) 4.5 10^3/uL (1.7-8.2); BASOPHILS % (AUTO) 1.1 % (0-2); EOSINOPHILS % (AUTO) 1.4 % (0-6); HEMOGLOBIN 13.6 g/dL (12.0-15.5); LYMPHOCYTES % (AUTO) 28.8 % (13-45); MEAN CORPUSCULAR HEMOGLOBIN 29.2 pg (27.0-33.4); MEAN CORPUSCULAR HGB CONC 34.8 g/dL (32.0-36.0); MEAN CORPUSCULAR VOLUME 84 fl (80-97); MONOCYTES % (AUTO) 8.3 % (3-13); PLATELET COUNT 152 10^3/uL (150-450); RED BLOOD COUNT 4.65 10^6/uL (3.72-5.28); RED CELL DISTRIBUTION WIDTH 13.8 % (11.5-14.0); SEGMENTED NEUTROPHILS % (AUTO) 60.4 % (42-78); TOTAL CELLS COUNTED % (AUTO) 100 %; WHITE BLOOD COUNT 7.4 10^3/uL (4.0-10.5)
[2018-08-10 05:22] LABS: APPEARANCE,URINE CLEAR; BILIRUBIN,URINE NEGATIVE (NEGATIVE); COLOR,URINE YELLOW; GLUCOSE, URINE NEGATIVE (NEGATIVE); KETONES,URINE NEGATIVE (NEGATIVE); LEUKOCYTE ESTERASE,URINE TRACE (NEGATIVE); NITRITE,URINE NEGATIVE (NEGATIVE); PROTEIN,URINE NEGATIVE (NEGATIVE); UROBILINOGEN,URINE NEGATIVE mg/dL (<2.0)
[2018-08-10] MEDS ORDERED: CEPHALEXIN 500 MG CAPSULE PO ONE (07:02)
[2018-08-10 07:05] LABS: EPITHELIALS (WET MOUNT) 3+ EPITHELIALS SEEN; RBCS (WET MOUNT) NO RBCS SEEN; T.VAGINALIS (WET MOUNT) NO TRICHOMONAS SEEN; WBCS (WET MOUNT) NO WBCS SEEN; YEAST (WET MOUNT) NO YEAST SEEN
--- NOTE | 2018-08-10 07:08 | ER Document Report ---
Addendum entered and electronically signed by BENITEZ STAHL NP 08/10/18 11:35: Course - Re-evaluation Re-evalutation: 08/10/18 11:35 Patient vomited x1. Patient states that she does not feel that she vomited the medication. Medications ordered for nausea. - Vital Signs Vital signs: Temp Pulse Resp BP Pulse Ox 97.8 F 56 L 14 95/41 L 100 08/10/18 09:57 08/10/18 09:57 08/10/18 09:57 08/10/18 09:57 08/10/18 09:57 - Laboratory Result Diagrams: 08/10/18 04:48 Laboratory results interpreted by me: 08/10/18 08/10/18 08/10/18 04:48 04:48 06:11 Beta HCG, Quant [id number] H Ur Leukocyte Esterase TRACE H Urine Ascorbic Acid 40 H N.gonorrhoeae DNA (PCR) DETECTED H Addendum entered and electronically signed by BENITEZ STAHL NP 08/10/18 10:26: Course - Re-evaluation Re-evalutation: 08/10/18 10:25 RN into discharge patient and patient hypotensive. Patient not symptomatic with hypotension at this time. Incidentally patient does have positive gonorrhea test results that have not been treated. Will give antibiotics in addition to IV fluid bolus and reevaluate patient status afterwards. Patient updated regarding positive gonorrhea test and the need to have her partner treated. - Vital Signs Vital signs: Temp Pulse Resp BP Pulse Ox 97.8 F 56 L 14 95/41 L 100 08/10/18 09:57 08/10/18 09:57 08/10/18 09:57 08/10/18 09:57 08/10/18 09:57 - Laboratory Result Diagrams: 08/10/18 04:48 Laboratory results interpreted by me: 08/10/18 08/10/18 08/10/18 04:48 04:48 06:11 Beta HCG, Quant [id number] H Ur Leukocyte Esterase TRACE H Urine Ascorbic Acid 40 H N.gonorrhoeae DNA (PCR) DETECTED H Discharge - Discharge Clinical Impression: Gonorrhea Genital herpes Qualifiers: Herpes simplex infection site: unspecified Qualified Code(s): A60.00 - Herpesviral infection of urogenital system, unspecified Qualifiers: Weeks of gestation: 8 weeks Qualified Code(s): Z3A.08 - 8 weeks gestation of Urinary tract infection Qualifiers: Urinary tract infection type: acute cystitis Hematuria presence: without hematuria Qualified Code(s): N30.00 - Acute cystitis without hematuria Condition: Stable Disposition: HOME, SELF-CARE Instructions: Acyclovir ([facility]), Cephalexin ([facility]), Genital Herpes ([facility]), Urinary Tract Infection ([facility]) Additional Instructions: As we discussed you have been seen and treated in the emergency department due to your genital herpes. I am giving you a medication called acyclovir. This will help treat your herpes outbreak. As we discussed at length it is unknown if acyclovir is safe in . You have chosen that you would like to use it as a treatment. Please make sure you follow-up with your primary care provider and S[facility]IOR [facility] ENGINEER in the next 24-48 hours. Your urine also shows slight signs of infection. Because you are I will treat you with a medication called Keflex. Please take it as prescribed. Prescriptions: Acyclovir [Acyclovir 400 mg Tablet] 400 mg PO TID 5 Days tablet Cephalexin Monohydrate [Keflex 500 mg Capsule] 500 mg PO BID 7 Days #14 capsule Referrals: LADRAIUS HENNESSY MD [Primary Care Provider] - Follow up as needed Original Note: ED General - General Chief Complaint: Other Stated Complaint: PELVIC PAIN Time Seen by Provider: 08/10/18 05:05 Primary Care Provider: LADARIUS HENNESSY MD [Primary Care Provider] - Follow up as needed Notes: Patient is a 28-year-old female presents to the emergency department for a vagin al sore. Patient states she has had a sore for the last 36 hours and states that it is getting worse. Patient is denying any vaginal discharge or vaginal bleeding. States her last menstrual period was on 06/13/2018 and she believes she is 8 weeks . Patient states she is . Patient initially presented to nursing staff that she was requesting a RhoGam shot. States she knows that she is Rh- and needs a RhoGam shot. Upon further questioning in the emergency department patient states that was "a cover up" states she is really here due to the lesion on her groin. Nursing staff had already put in protocols, CBC, CMP, urine, hCG, RhoGam testing. That had already been resulted upon my examination of the patient. RhoGam is indicated. Past medical history: Genital herpes Medications: None Allergies: None TRAVEL OUTSIDE OF THE [place] IN LAST 30 DAYS: No - Related Data Allergies/Adverse Reactions: No Known Drug Allergies Allergy (Verified 05/09/18 15:26) poison blake extract Allergy (Verified 05/09/18 15:26) Past Medical History - General Information source: Patient - Social History Smoking Status: Unknown if Ever Smoked Family History: Reviewed & Not Pertinent Neurological Medical History: Denies: Hx Seizures Renal/ Medical History: Denies: Hx Peritoneal Dialysis Psychiatric Medical History: Reports: Hx Attention Deficit Hyperactivity Disorder Past Surgical History: Reports: Hx Appendectomy, Hx Gynecologic Surgery - ectopic, Hx Tonsillectomy. Denies: Hx Hysterectomy, Hx Pacemaker - Immunizations Hx Diphtheria, Pertussis, Tetanus Vaccination: No Review of Systems - Review of Systems Constitutional: No symptoms reported EENT: No symptoms reported Cardiovascular: No symptoms reported Respiratory: No symptoms reported Gastrointestinal: No symptoms reported Genitourinary: No symptoms reported Female Genitourinary: No symptoms reported Musculoskeletal: No symptoms reported Skin: See HPI Hematologic/Lymphatic: No symptoms reported Neurological/Psychological: No symptoms reported Physical Exam - Vital signs Vitals: Temp Pulse Resp BP Pulse Ox 99.0 F 66 20 121/53 L 100 08/09/18 23:07 08/09/18 23:07 08/09/18 23:07 08/09/18 23:07 08/09/18 23:07 - Notes Notes: GENERAL: Alert, interacts well. No acute distress. HEAD: Normocephalic, atraumatic. EYES: Pupils equal, round, and reactive to light. Extraocular movements intact. ENT: Oral mucosa moist, tongue midline. NECK: Full range of motion. Supple. Trachea midline. LUNGS: Clear to auscultation bilaterally, no wheezes, rales, or rhonchi. No respiratory distress. HEART: Regular rate and rhythm. No murmur ABDOMEN: Soft, non-tender. Non-distended. Bowel sounds present in all 4 quadrants. EXTREMITIES: Moves all 4 extremities spontaneously. No edema, normal radial and dorsalis pedis pulses bilaterally. No cyanosis. BACK: no cervical, thoracic, lumbar midline tenderness. No saddle anesthesia, normal distal neurovascular exam. NEUROLOGICAL: Alert and oriented x3. Normal speech. cranial nerves II through XII grossly intact PSYCH: Normal affect, normal mood. SKIN: Warm, dry, normal turgor. Erythematous based vesicular lesions noted 1:00 on the labia minora. Pelvic: Scant clear discharge noted in the cul-de-sac, no cervical motion tenderness, no adnexal tenderness noted bilaterally. Course - Re-evaluation Re-evalutation: 08/10/18 07:13 Discussed waiting for patient's gonorrhea and Chlamydia testing to be confirmed prior to treating her prophylactically with antibiotics due to her . Patient voices understanding and states she wishes to do that since she has no vaginal discharge or itching. Discussed that acyclovir which is the treatment for herpes is controversial in the first trimester of . Discussed that this is not her first outbreak and that is my recommendation that she tries to not take any medications. Patient states "I did not come to the emergency room for nothing." Patient is requesting treatment at this time. Discussed with her risks versus benefits to her unborn child, patient voices understanding and is requesting treatment for her general herpes. Patient's urine also noted to have a slight infection, sent for culture, will treat with Keflex due to her . - Vital Signs Vital signs: Temp Pulse Resp BP Pulse Ox 99.0 F 69 20 111/65 100 08/09/18 23:07 08/10/18 04:58 08/10/18 04:58 08/10/18 04:58 08/10/18 04:58 - Laboratory Result Diagrams: 08/10/18 04:48 Laboratory results interpreted by me: 08/10/18 08/10/18 04:48 04:48 Beta HCG, Quant [id number] H Ur Leukocyte Esterase TRACE H Urine Ascorbic Acid 40 H Discharge - Discharge Clinical Impression: Genital herpes Qualifiers: Herpes simplex infection site: unspecified Qualified Code(s): A60.00 - Herpesviral infection of urogenital system, unspecified Qualifiers: Weeks of gestation: 8 weeks Qualified Code(s): Z3A.08 - 8 weeks gestation of Urinary tract infection Qualifiers: Urinary tract infection type: acute cystitis Hematuria presence: without hematuria Qualified Code(s): N30.00 - Acute cystitis without hematuria Condition: Stable Disposition: HOME, SELF-CARE Instructions: Acyclovir ([facility]), Genital Herpes ([facility]), Urinary Tract Infection ([facility]), Cephalexin ([facility]) Additional Instructions: As we discussed you have been seen and treated in the emergency department due to your genital herpes. I am giving you a medication called acyclovir. This will help treat your herpes outbreak. As we discussed at length it is unknown if acyclovir is safe in . You have chosen that you would like to use it as a treatment. Please make sure you follow-up with your primary care provider and SENIOR DEVOPS ENGINEER in the next 24-48 hours. Your urine also shows slight signs of infection. Because you are I will treat you with a medication called Keflex. Please take it as prescribed. Prescriptions: Acyclovir [Acyclovir 400 mg Tablet] 400 mg PO TID 5 Days tablet Cephalexin Monohydrate [Keflex 500 mg Capsule] 500 mg PO BID 7 Days #14 capsule Referrals: ALDARIUS HENNESSY MD [Primary Care Provider] - Follow up as needed
[2018-08-10 08:35] LABS: CHLAM PCR NOT DETECTED (NOT DETECT); GON PCR DETECTED (NOT DETECT)
[2018-08-10] MEDS ORDERED: CEFTRIAXONE INJ 250 MG VIAL IV ONE (10:01)
[2018-08-10] MEDS ORDERED: AZITHROMYCIN 250 MG TABLET PO ONE (10:01)
[2018-08-10] MEDS ORDERED: NORMAL SALINE 1000 ML 1,000 ML IV ONE (10:01)
[2018-08-10] MEDS ORDERED: PROMETHAZINE HCL INJ 25 MG/1 ML VIAL IV ONE (11:34)
[2018-08-10] MEDS ORDERED: ACETAMINOPHEN 325 MG TABLET PO ONE (12:33)
[2018-08-10 12:40] VITALS: BP 112/52
== END 2018-08-10 12:46 | disposition home or self-care (01) ==
LOC: ER 22:29
DX: O98.511 Other viral diseases complicating pregnancy, first trimester (principal); B00.9 Herpesviral infection, unspecified; O23.11 Infections of bladder in pregnancy, first trimester; N30.00 Acute cystitis without hematuria; O98.211 Gonorrhea complicating pregnancy, first trimester; R11.0 Nausea; Z3A.08 8 weeks gestation of pregnancy
CPT/HCPCS: 99284; 96372; 96361; 96375; 96365; 86900; 86901; 36415; 87086; 87210; 86850; 84702; 85025; 81001; 87250; 87491; 87591; J2790; J2550; J7030; J0696

== ENCOUNTER → 2018-08-20 | Outpatient (CLI) | payer SELFPAY ==
--- NOTE | 2018-08-20 14:44 | RADIOLOGY REPORT (SQ) ---
EXAM DESCRIPTION: U/S [id number] TRNABD 1GES W/ODOP COMPLETED DATE/TIME: 08/20/2018 2:32 pm REASON FOR STUDY: ENCOUNTER FOR SUPERVISION OF OTHER NORMAL Z34.81 ENCOUNTER FOR SUPRVSN OF NORMAL , FIRST TRIM COMPARISON: None. TECHNIQUE: Transabdominal static and realtime grayscale images acquired of the pelvis. Additional se lected spectral and color Doppler images recorded. All images stored on PACs. bHCG: Not available. CLINICAL DATES: 9 weeks 5 days. LIMITATIONS: None. FINDINGS: FETUS: Single Living intrauterine . ULTRASOUND EGA: 9 weeks 5 days. ULTRASOUND GRISELDA: 03/20/2019. EFW: Not applicable less than 20 weeks. CRL: Present. FHR: 165 beats per minute. SURVEY: Too early to assess. AMNIOTIC FLUID: Adequate amount. PLACENTA: Not yet developed due to early gestation. SUBCHORIONIC BLEED: No. SIZE OF BLEED: Not applicable. UTERUS: No masses. No anomalies. CERVICAL LENGTH: 3.3 cm. Closed. RIGHT ADNEXA: Ovary not identified due to poor acoustical window. No adnexal free fluid. LEFT ADNEXA: Ovary not identified due to poor acoustical window. No adnexal free fluid. No adnexal masses. FREE FLUID: None. OTHER: No other significant finding. IMPRESSION: LIVING INTRAUTERINE . EGA 9 WEEKS 5 DAYS. Trimester of : First - 0 to 13 weeks. TECHNICAL DOCUMENTATION: JOB ID: [id number] [employer]- All Rights Reserved Reading location - IP/workstation name: [email or web address]
== END ==
LOC: RAD 13:53
PROVIDERS: ATTEND Midwife
DX: Z34.81 Encounter for supervision of other normal pregnancy, first trimester (principal)
CPT/HCPCS: 76801

== ENCOUNTER 2019-03-07 13:14 | Outpatient (CLI) | payer MEDICAID ==
--- NOTE | 2019-03-07 14:13 | Non Stress Test Report ---
Non Stress Test Datetime Report Generated by CPN: 03/07/2019 14:12 DEMOGRAPHIC EGA NST: 38.1 INDICATION Indication for Study: Ordered by Provider MONITORING Monitor Explained: Monitor Explained; Test Explained; Patient Verbalized Understanding Time on Monitor: 03/07/2019 13:30 Time off Monitor: 03/07/2019 13:50 NST Duration: 20 NST INTERVENTIONS NST Interventions: None Physician Notified NST: K. Robert, CNM BABY A: [id number] BABY A Movement : Present Contraction Frequency : none FHR Baseline : 145 Accelerations : 15X15 Decelerations : None Variability : Moderate 6-25bpm NST Review: Meets Criteria for Reactive NST NST Review and Verified By : Alex Chavarria RN NST Results: Reactive NST REPORT Report Trigger: Send Report
[2019-03-07 14:18] LABS: APPEARANCE,URINE SLIGHTLY-CLOUDY; BILIRUBIN,URINE NEGATIVE (NEGATIVE); COLOR,URINE YELLOW; GLUCOSE, URINE NEGATIVE (NEGATIVE); KETONES,URINE NEGATIVE (NEGATIVE); LEUKOCYTE ESTERASE,URINE SMALL (NEGATIVE); NITRITE,URINE NEGATIVE (NEGATIVE); PROTEIN,URINE NEGATIVE (NEGATIVE); URINE SPECIFIC GRAVITY 1.013; UROBILINOGEN,URINE NEGATIVE mg/dL (<2.0)
[2019-03-07 14:52] LABS: URINE AMPHETAMINES SCREEN NEGATIVE; URINE BARBITURATES SCREEN NEGATIVE; URINE BENZODIAZEPINES SCREEN NEGATIVE; URINE COCAINE SCREEN NEGATIVE; URINE MARIJUANA (THC) SCREEN NEGATIVE; URINE METHADONE SCREEN NEGATIVE; URINE PHENCYCLIDINE SCREEN NEGATIVE
== END 2019-03-07 14:40 | disposition home or self-care (01) ==
LOC: LC 13:14
PROVIDERS: ATTEND Obstetrics & Gynecology
PROC: 4A1HXCZ Monitoring of Products of Conception, Cardiac Rate, External Approach (ICD-10-PCS; principal; 2019-03-07)
DX: Z36.89 Encounter for other specified antenatal screening (principal)
CPT/HCPCS: 80307; 81005; 84112

== ENCOUNTER 2019-03-18 02:52 | Inpatient (IN) | payer MEDICAID ==
[2019-03-18 03:42] LABS: APPEARANCE,URINE SLIGHTLY-CLOUDY; BILIRUBIN,URINE NEGATIVE (NEGATIVE); COLOR,URINE YELLOW; GLUCOSE, URINE 150 mg/dL (NEGATIVE); KETONES,URINE TRACE mg/dL (NEGATIVE); LEUKOCYTE ESTERASE,URINE SMALL (NEGATIVE); NITRITE,URINE NEGATIVE (NEGATIVE); PROTEIN,URINE NEGATIVE (NEGATIVE); URINE SPECIFIC GRAVITY 1.012; UROBILINOGEN,URINE NEGATIVE mg/dL (<2.0)
[2019-03-18 03:57] LABS: URINE AMPHETAMINES SCREEN NEGATIVE; URINE BARBITURATES SCREEN NEGATIVE; URINE BENZODIAZEPINES SCREEN NEGATIVE; URINE COCAINE SCREEN NEGATIVE; URINE MARIJUANA (THC) SCREEN NEGATIVE; URINE METHADONE SCREEN NEGATIVE; URINE PHENCYCLIDINE SCREEN NEGATIVE
[2019-03-18] MEDS ORDERED: PENICILLIN G POTASSIUM 5,000,000 UNIT in DEXTROSE 5%-WATER 100 ML IV ONE (04:07)
[2019-03-18] MEDS ORDERED: RINGERS SOLUTION,LACTATED 1,000 ML IV ONE (04:07)
--- NOTE | 2019-03-18 04:13 | Admission Physical ---
Datetime Report Generated by CPN: 03/18/2019 04:13 CURRENT ADMISSION Chief Complaint: Suspected Ruptured Membranes Indication for Induction: Not Applicable Admit Impression : Term, Intrauterine Admit Plan: Admit to Unit; Initiate Labor Protocol ALLERGIES Medication Allergies: No Medication Allergies: No Known Drug Allergies (03/07/2019); poison blake extract (03/07/2019) OBSTETRICAL HISTORY EDC: 03/20/2019 00:00 : 5 Para: 1 Livin PHYSICAL EXAM General: Normal HEENT: Normal Neurologic: Normal Thyroid: Normal Heart: Normal Lungs: Normal Breast: Deferred Back: Normal Abdomen: Normal Genitourinary Exam: Normal Extremities: Normal DTRs: Normal Pelvic Type: Adequate FETUS A EGA: 39.5 INFORMED CONSENT Signature: with User ID: [email or web address]
[2019-03-18] MEDS ORDERED: PENICILLIN G-K 5 MILLION UNIT VIAL ONE ×5 (05:43→22:15)
[2019-03-18 06:07] LABS: ABSOLUTE BASOPHILS # (AUTO) 0.1 10^3/uL (0.0-0.2); ABSOLUTE EOSINOPHILS # (AUTO) 0.1 10^3/uL (0.0-0.6); ABSOLUTE LYMPHOCYTES (AUTO) 1.8 10^3/uL (0.5-4.7); ABSOLUTE MONOCYTES (AUTO) 0.7 10^3/uL (0.1-1.4); ABSOLUTE NEUT (AUTO) 7.9 10^3/uL (1.7-8.2); BASOPHILS % (AUTO) 0.7 % (0-2); EOSINOPHILS % (AUTO) 0.7 % (0-6); HEMATOCRIT 35.8 % (36.0-47.0); HEMOGLOBIN 12.1 g/dL (12.0-15.5); LYMPHOCYTES % (AUTO) 16.7 % (13-45); MEAN CORPUSCULAR HGB CONC 33.7 g/dL (32.0-36.0); MEAN CORPUSCULAR VOLUME 83 fl (80-97); MONOCYTES % (AUTO) 6.4 % (3-13); PLATELET COUNT 125 10^3/uL (150-450); RED BLOOD COUNT 4.31 10^6/uL (3.72-5.28); RED CELL DISTRIBUTION WIDTH 13.4 % (11.5-14.0); SEGMENTED NEUTROPHILS % (AUTO) 75.5 % (42-78); TOTAL CELLS COUNTED % (AUTO) 100 %; WHITE BLOOD COUNT 10.5 10^3/uL (4.0-10.5)
[2019-03-18] MEDS ORDERED: OXYTOCIN/NORMAL SALINE 20 UNIT/1,000 ML RTUINJ IV PRN (08:08)
[2019-03-18] MEDS ORDERED: OXYTOCIN/NORMAL SALINE 20 UNIT/1,000 ML RTUINJ ONE (08:14)
[2019-03-18] MEDS: PENICILLIN G POTASSIUM 2,500,000 UNIT in DEXTROSE 5%-WATER 50 ML IV SCH ×4 (09:52→22:22)
[2019-03-18] MEDS ORDERED: PROMETHAZINE HCL INJ 25 MG/1 ML VIAL ONE (16:41)
[2019-03-18] MEDS ORDERED: NALBUPHINE HCL INJ 10 MG/1 ML AMPULE ONE (16:42)
[2019-03-18] MEDS ORDERED: NALBUPHINE HCL INJ 10 MG/1 ML AMPULE INJ ONE (16:44)
[2019-03-18] MEDS ORDERED: PROMETHAZINE HCL INJ 25 MG/1 ML VIAL IV ONE (16:44)
[2019-03-18] MEDS ORDERED: FENTANYL/BUPIVACAINE/NS/PF 300 MCG/150 ML RTUINJ EPI ONE (18:24)
[2019-03-18] MEDS ORDERED: FENTANYL CITRATE INJ/PF 100 MCG/2 ML AMPUL ONE (18:24)
[2019-03-18] MEDS ORDERED: EPHEDRINE SULFATE INJ 50 MG/1 ML AMPULE ONE (18:24)
[2019-03-18] MEDS ORDERED: BUPIVACAINE HCL 0.25 % INJ/PF (2.5 MG/1 ML) 30 ML VIAL ONE (18:25)
[2019-03-18] MEDS: RINGERS SOLUTION,LACTATED 1,000 ML IV PRN ×2 (18:37→20:09)
[2019-03-18] MEDS ORDERED: OXYTOCIN 10 UNIT/ML VIAL ONE (22:05)
[2019-03-18] MEDS ORDERED: MISOPROSTOL 0.2 MG TABLET ONE (22:06)
[2019-03-18] MEDS ORDERED: LIDOCAINE 1% INJ-PF (10 MG/ML) 30 ML SDV ONE (22:06)
[2019-03-18] MEDS ORDERED: ONDANSETRON HCL INJ/PF 4 MG/2 ML SDV ONE (23:39)
[2019-03-18] MEDS ORDERED: ONDANSETRON HCL INJ/PF 4 MG/2 ML SDV IV ONE (23:59)
[2019-03-19] MEDS ORDERED: OXYTOCIN/NORMAL SALINE 20 UNIT/1,000 ML RTUINJ ONE (02:31)
[2019-03-19] MEDS ORDERED: ACETAMINOPHEN 650 MG SUPP.RECT PR PRN (03:12)
[2019-03-19] MEDS ORDERED: PSEUDOEPHEDRINE HCL 30 MG TABLET PO PRN (03:12)
[2019-03-19] MEDS ORDERED: PROMETHAZINE HCL 25 MG TABLET PO PRN (03:12)
[2019-03-19] MEDS ORDERED: GLYCERIN/WITCH HAZEL LEAF 1 EACH MED..WIPE TP PRN (03:12)
[2019-03-19] MEDS ORDERED: MAGNESIUM HYDROXIDE SUSP 30 ML UDCUP PO PRN (03:12)
[2019-03-19] MEDS ORDERED: DIPHENHYDRAMINE HCL 25 MG CAPSULE PO PRN (03:12)
[2019-03-19] MEDS ORDERED: DIBUCAINE 1% OINTMENT 56 GM TP PRN (03:12)
[2019-03-19] MEDS ORDERED: ACETAMINOPHEN WITH CODEINE #3 TABLET PO PRN ×2 (03:12)
[2019-03-19] MEDS ORDERED: PROMETHAZINE HCL INJ 25 MG/1 ML VIAL IV PRN (03:12)
[2019-03-19] MEDS ORDERED: PROMETHAZINE HCL 25 MG SUPP.RECT PR PRN (03:12)
[2019-03-19] MEDS ORDERED: MEASLES,MUMPS&RUBELLA VACC/PF 0.5 ML VIAL SUBCUT PRN (03:12)
[2019-03-19] MEDS ORDERED: NA PHOS,M-B/NA PHOS,DI-BA (ADULT) 133 ML ENEMA PR PRN (03:12)
[2019-03-19] MEDS ORDERED: BENZOCAINE/MENTHOL AEROSOL SPRAY 56 ML TOP PRN (03:12)
[2019-03-19] MEDS ORDERED: DIPH/PERTUSS(ACELL)/TETANUS VAC/PF 0.5 ML SYR (>=10YO) IM PRN (03:12)
[2019-03-19] MEDS ORDERED: ZOLPIDEM TARTRATE 5 MG TABLET PO PRN (03:12)
[2019-03-19] MEDS ORDERED: OXYTOCIN/NORMAL SALINE 20 UNIT/1,000 ML RTUINJ IV PRN (03:12)
--- NOTE | 2019-03-19 04:50 | Delivery Summary ---
Del Sum A-C Datetime Report Generated by CPN: 03/19/2019 04:50 DELIVERY PERSONNEL DELIVERY PERSONNEL: [id number] Delivery Doctor:: Celestine Saavedra MD Labor and Delivery Nurse:: Sofia Busby RN Labor and Delivery Nurse:: Delilah Powers, RN MATERNAL INFORMATION Delivery Anesthesia: Epidural Medications After Delivery: Pitocin Bolus-Please Comment Meds After Delivery Comment: pitocin 20 units in 1000 ml NSS Estimated Blood Loss (ml): 250 Maternal Complications: Premature Rupture of Membranes LABOR SUMMARY EDC: 03/20/2019 00:00 No. Babies in Womb: 1 Attempted: No Labor Anesthesia: Epidural LABOR INFORMATION Reason for Induction: Other Reason for Induction- Other: srom Onset of Labor: 03/19/2019 15:49 Complete Dilatation: 03/19/2019 01:35 Oxytocin: Augmentation Group B Beta Strep: Positive Antibiotics # of Doses: 5 Antibiotics Time of Last Dose: 2224 Name of Antibiotic Given: Penicillin Steroids Given: None Reason Steroids Not Administered: Not Applicable MEMBRANES Membranes Rupture Method: Spontaneous Rupture of Membranes: 03/18/2019 02:30 Length of Rupture (hr): 24.45 Amniotic Fluid Color: Moderate Meconium Amniotic Fluid Amount: Moderate Amniotic Fluid Odor: Normal STAGES OF LABOR Stage 1 hr: -14 Stage 1 min: -14 Stage 2 hr: 1 Stage 2 min: 22 Stage 3 hr: 0 Stage 3 min: 2 Total Time in Labor hr: -12 Total Time in Labor min: -50 VAGINAL DELIVERY Episiotomy: None Laceration #1: Perineal Laceration Extension #1: Second Degree Laceration #2: None Laceration Extension #2: N/A Laceration #3: None Laceration Extension #3: N/A Laceration Repair: Yes Laceration Repair Note: small perineal laceration repaired with 3-0 chromic Sponge Count Correct: Vaginal Sweep Performed Sharps Count Correct: Yes BABY A INFORMATION Delivery Date/Time: 03/19/2019 02:57 Method of Delivery: Vaginal Born in Route : No : N/A Forceps: N/A Vacuum Extraction: N/A Shoulder Dystocia : Yes SHOULDER DYSTOCIA BABY A 1st Intervention to Resolve: McRobert's Maneuver 2nd Intervention to Resolve: Suprapubic Pressure 3rd Intervention to Resolve: Cuellar Maneuver Verify NO Fundal Pressure: No Fundal Pressure Applied Arm Under Symphisis at Del: Right PRESENTATION/POSITION BABY A Presentation: Cephalic Cephalic Presentation: Vertex Vertex Position: Left Occipital Anterior Breech Presentation: N/A PLACENTA INFORMATION BABY A Placenta Delivery Time : 03/19/2019 02:59 Placenta Method of Delivery: Spontaneous Placenta Status: Delivered SCORES BABY A Heart Rate 1 min: >100 bpm Resp Effort 1 min: Absent Reflex Irritability 1 min: Grimace Muscle Tone 1 min: Some Flexion of Extremities Color 1 min: Blue/Pale Resuscitation Effort 1 min: Tactile Stimulation; Oxygen; PPV/NCPAP SCORE 1 MIN: 4 Heart Rate 5 min: >100 bpm Resp Effort 5 min: Good Cry Reflex Irritability 5 min: Cough or Sneeze or Pulls Away Muscle Tone 5 min: Active Motion Color 5 min: Body [place], Extremities Blue SCORE 5 MIN: 9 INFORMATION BABY A Gestational Age at Delivery: 39.6 Gestational Status: Full Term- 39- 40.6 Weeks Outcome : Liveborn Infant Condition : Stable Sex: Female IDENTIFICATION BABY A Verification Date/Time: 03/19/2019 03:11 ID Band Number: [id number] Mother's Name Verified: Yes RN Verifying Infant: Tin Chambers, RN Additional Verifying Personnel: SParmjit Corbin RN WEIGHT/LENGTH BABY A Infant Birthweight (gm): 4205 Infant Weight (lb): 9 Infant Weight (oz): 4 Length (in): 21.00 Length (cm): 53.34 CORD INFORMATION BABY A No. Cord Vessels: 3 Nuchal Cord : N/A Cord Blood Taken: Yes-For Eval (Mom's Blood Type - or O+) Infant Suction: Mouth ASSESSMENT BABY A Respirations: Grunting Skin to Skin: No BABY B INFORMATION : N/A SIGNATURES Signature: with User ID: [email or web address]
[2019-03-19] MEDS: IBUPROFEN 800 MG TABLET PO SCH ×3 (07:45→22:53)
[2019-03-19] MEDS: FAMOTIDINE 20 MG TABLET PO SCH ×2 (11:23→22:53)
[2019-03-19] MEDS: DOCUSATE SODIUM 100 MG CAPSULE PO SCH ×2 (11:24→17:45)
[2019-03-19] MEDS: FERROUS SULFATE 325 MG TABLET PO SCH ×2 (11:24→17:45)
[2019-03-19] MEDS: PRENATAL VITAMIN W DHA CAPSULE PO SCH (11:24)
[2019-03-19] MEDS: SENNOSIDES/DOCUSATE 8.6-50 MG 1 EACH TABLET PO SCH (11:24)
--- NOTE | 2019-03-19 11:58 | PDOC PROGRESS REPORT ---
Subjective-OB Progress Note for:: 03/19/19 Subjective: Pt doing well, no concerns. She reports light bleeding, reg diet and voiding without difficulty. Physical Exam (OB) Vital Signs: Temp Pulse Resp BP Pulse Ox 98.2 F 86 18 115/55 L 97 03/19/19 07:29 03/19/19 07:29 03/19/19 07:29 03/19/19 07:29 03/19/19 07:29 Intake & Output 03/18/19 03/19/19 03/20/19 06:59 06:59 06:59 Intake Total 192 Balance 192 Weight 96.8 kg - PIH/Pre-Eclampsia Headache: Absent Epigastric Pain: No Visual Changes: No - Lochia Lochia Amount: Scant < 10 ml Lochia Color: Rubra/Red - Abdomen Description: Soft Hernia Present: No Fundal Description: Firm, Midline Fundal Height: u/u - u/2 Objective-Diagnostic Laboratory: 03/18/19 05:41 Assessment and Plan(PN) - Assessment and Plan (1) Vaginal delivery Is this a current diagnosis for this admission?: Yes (2) Shoulder dystocia during labor and delivery Is this a current diagnosis for this admission?: Yes - Time Spent with Patient Time with patient: Less than 15 minutes Medications reviewed and adjusted accordingly: Yes - Disposition Anticipated Discharge: Home Within: within 24 hours
[2019-03-20] MEDS: IBUPROFEN 800 MG TABLET PO SCH ×3 (06:06→22:22)
[2019-03-20 08:06] LABS: HEMATOCRIT 29.4 % (36.0-47.0); MEAN CORPUSCULAR HEMOGLOBIN 28.8 pg (27.0-33.4); MEAN CORPUSCULAR HGB CONC 34.1 g/dL (32.0-36.0); MEAN CORPUSCULAR VOLUME 84 fl (80-97); PLATELET COUNT 126 10^3/uL (150-450); RED BLOOD COUNT 3.49 10^6/uL (3.72-5.28); RED CELL DISTRIBUTION WIDTH 13.7 % (11.5-14.0); WHITE BLOOD COUNT 7.9 10^3/uL (4.0-10.5)
[2019-03-20] MEDS: DOCUSATE SODIUM 100 MG CAPSULE PO SCH ×2 (10:02→17:44)
[2019-03-20] MEDS: SENNOSIDES/DOCUSATE 8.6-50 MG 1 EACH TABLET PO SCH (10:02)
[2019-03-20] MEDS: PRENATAL VITAMIN W DHA CAPSULE PO SCH (10:02)
[2019-03-20] MEDS: FERROUS SULFATE 325 MG TABLET PO SCH ×2 (10:02→17:43)
[2019-03-20] MEDS: FAMOTIDINE 20 MG TABLET PO SCH ×2 (10:02→22:24)
--- NOTE | 2019-03-20 12:57 | PDOC PROGRESS REPORT ---
Subjective-OB Progress Note for:: 03/20/19 Subjective: Pt c/o cramps, wants pain meds. Denies heavy bleeding/clots. Reports reg diet and voiding without difficulty. Physical Exam (OB) Vital Signs: Temp Pulse Resp BP Pulse Ox 98 F 56 L 18 110/63 98 03/20/19 08:47 03/20/19 08:47 03/20/19 08:47 03/20/19 08:47 03/20/19 08:47 Intake & Output 03/19/19 03/20/19 03/21/19 06:59 06:59 06:59 Intake Total 192 Balance 192 - PIH/Pre-Eclampsia Clonus: Negative Headache: Absent Epigastric Pain: No Visual Changes: No - Lochia Lochia Amount: Small 10-25 ml Lochia Color: Rubra/Red - Abdomen Description: Round Hernia Present: No Fundal Description: Firm, Midline Fundal Height: u/u - u/2 Objective-Diagnostic Laboratory: 03/20/19 07:15 03/20/19 03/20/19 07:15 07:15 WBC 7.9 RBC 3.49 L Hgb 10.0 L D Hct 29.4 L MCV 84 MCH 28.8 MCHC 34.1 RDW 13.7 Plt Count 126 L Blood Type B NEGATIVE Assessment and Plan(PN) - Assessment and Plan (1) Vaginal delivery Is this a current diagnosis for this admission?: Yes (2) Shoulder dystocia during labor and delivery Is this a current diagnosis for this admission?: Yes - Time Spent with Patient Time with patient: Less than 15 minutes Medications reviewed and adjusted accordingly: Yes - Disposition Anticipated Discharge: Home Within: within 24 hours
[2019-03-21] MEDS: IBUPROFEN 800 MG TABLET PO SCH (05:48)
[2019-03-21] MEDS: PRENATAL VITAMIN W DHA CAPSULE PO SCH (09:32)
[2019-03-21] MEDS: SENNOSIDES/DOCUSATE 8.6-50 MG 1 EACH TABLET PO SCH (09:32)
[2019-03-21] MEDS: FERROUS SULFATE 325 MG TABLET PO SCH (09:32)
[2019-03-21] MEDS: FAMOTIDINE 20 MG TABLET PO SCH (09:32)
[2019-03-21] MEDS: DOCUSATE SODIUM 100 MG CAPSULE PO SCH (09:32)
[2019-03-21] MEDS ORDERED: DIPH/PERTUSS(ACELL)/TETANUS VAC/PF 0.5 ML SYR (>=10YO) IM PRN (10:00)
[2019-03-21] MEDS ORDERED: MEASLES,MUMPS&RUBELLA VACC/PF 0.5 ML VIAL SUBCUT PRN (10:00)
--- NOTE | 2019-03-21 10:32 | PDOC PROGRESS REPORT ---
Subjective-OB Progress Note for:: 03/21/19 Subjective: Doing well, no c/o, ready to go home, FOB not involved, states she has help at home Physical Exam (OB) Vital Signs: Temp Pulse Resp BP Pulse Ox 97.7 F 53 L 14 117/60 98 03/21/19 08:00 03/21/19 08:00 03/21/19 08:00 03/21/19 08:00 03/21/19 08:00 Intake & Output 03/20/19 03/21/19 03/22/19 06:59 06:59 06:59 Intake Total 500 Balance 500 - PIH/Pre-Eclampsia DTR's: 1 + Clonus: Negative Headache: Absent Epigastric Pain: No Visual Changes: No - Bilateral Tubal Ligation Dressing Removed: No - Lochia Lochia Amount: Scant < 10 ml Lochia Color: Rubra/Red - Abdomen Description: Firm, Soft Hernia Present: No Fundal Description: Firm, Midline Fundal Height: u/u - u/2 Objective-Diagnostic Laboratory: 03/20/19 07:15 03/20/19 07:15 Blood Type B NEGATIVE Assessment and Plan(PN) - Assessment and Plan (1) Prolonged rupture of membranes, greater than 24 hours, delivered Is this a current diagnosis for this admission?: Yes (2) GBS (group B Streptococcus carrier), +RV culture, currently Is this a current diagnosis for this admission?: Yes (3) Vaginal delivery Is this a current diagnosis for this admission?: Yes (4) Shoulder dystocia during labor and delivery Is this a current diagnosis for this admission?: Yes - Time Spent with Patient Time with patient: Less than 15 minutes Medications reviewed and adjusted accordingly: Yes - Disposition Anticipated Discharge: Home Within: within 24 hours
--- NOTE | 2019-03-21 10:38 | PDOC DISCHARGE SUMMARY ---
Impression - Admit/DC Date/PCP Admission Date/Primary Care Provider: 03/18/19 04:14 ERNIE SCOTT MD Discharge Date: 03/21/19 - Discharge Diagnosis (1) Prolonged rupture of membranes, greater than 24 hours, delivered Is this a current diagnosis for this admission?: Yes (2) GBS (group B Streptococcus carrier), +RV culture, currently Is this a current diagnosis for this admission?: Yes (3) Vaginal delivery Is this a current diagnosis for this admission?: Yes (4) Shoulder dystocia during labor and delivery Is this a current diagnosis for this admission?: Yes - Additional Information Discharge Diet: As Tolerated, Regular Discharge Activity: Activity As Tolerated, No Lifting Over 10 Pounds, No Lifting/Push/Pulling, Pelvic Rest Referrals: ERNIE SCOTT MD [Primary Care Provider] - (4 weeks) Home Medications: Valacyclovir HCl [Valtrex] 1,000 mg PO DAILY #14 tablet 12/17/11 Pnv No.95/Ferrous Fum/Folic AC [ Caplet] 1 tab PO DAILY 03/07/19 HPI Gestational Age: 39.6 Reason(s) for Admission: Onset of Labor, Group B Strep Positive Admission Note: Meconium Procedures: Ultrasound Intrapartum Procedure(s): Spontaneous Vaginal Delivery Intrapartum Procedure Note: shouder dystocia Complication(s): Laceration-Perineal Laceration-Degree: 2nd Hospital Course Hospital Course: routine Results Laboratory Results: WBC 7.9 10^3/uL (4.0-10.5) 03/20/19 07:15 RBC 3.49 10^6/uL (3.72-5.28) L 03/20/19 07:15 Hgb 10.0 g/dL (12.0-15.5) L D 03/20/19 07:15 Hct 29.4 % (36.0-47.0) L 03/20/19 07:15 MCV 84 fl (80-97) 03/20/19 07:15 MCH 28.8 pg (27.0-33.4) 03/20/19 07:15 MCHC 34.1 g/dL (32.0-36.0) 03/20/19 07:15 RDW 13.7 % (11.5-14.0) 03/20/19 07:15 Plt Count 126 10^3/uL (150-450) L 03/20/19 07:15 Lymph % (Auto) 16.7 % (13-45) 03/18/19 05:41 [place] % (Auto) 6.4 % (3-13) 03/18/19 05:41 Eos % (Auto) 0.7 % (0-6) 03/18/19 05:41 Baso % (Auto) 0.7 % (0-2) 03/18/19 05:41 Absolute Neuts (auto) 7.9 10^3/uL (1.7-8.2) 03/18/19 05:41 Absolute Lymphs (auto) 1.8 10^3/uL (0.5-4.7) 03/18/19 05:41 Absolute Monos (auto) 0.7 10^3/uL (0.1-1.4) 03/18/19 05:41 Absolute Eos (auto) 0.1 10^3/uL (0.0-0.6) 03/18/19 05:41 Absolute Basos (auto) 0.1 10^3/uL (0.0-0.2) 03/18/19 05:41 Seg Neutrophils % 75.5 % (42-78) 03/18/19 05:41 Urine Color YELLOW 03/18/19 02:58 Urine Appearance SLIGHTLY-CLOUDY 03/18/19 02:58 Urine pH 6.0 (5.0-9.0) 03/18/19 02:58 Ur Specific [place] 1.012 03/18/19 02:58 Urine Protein NEGATIVE mg/dL (NEGATIVE) 03/18/19 02:58 Urine Glucose (UA) 150 mg/dL (NEGATIVE) H 03/18/19 02:58 Urine Ketones TRACE mg/dL (NEGATIVE) H 03/18/19 02:58 Urine Blood NEGATIVE (NEGATIVE) 03/18/19 02:58 Urine Nitrite NEGATIVE (NEGATIVE) 03/18/19 02:58 Urine Bilirubin NEGATIVE (NEGATIVE) 03/18/19 02:58 Urine Urobilinogen NEGATIVE mg/dL (<2.0) 03/18/19 02:58 Ur Leukocyte Esterase SMALL (NEGATIVE) H 03/18/19 02:58 Urine Ascorbic Acid NEGATIVE (NEGATIVE) 03/18/19 02:58 Membranes Rupture POSITIVE (NEGATIVE) H 03/18/19 03:01 Urine Opiates Screen NEGATIVE 03/18/19 02:58 Urine Methadone Screen NEGATIVE 03/18/19 02:58 Ur Barbiturates Screen NEGATIVE 03/18/19 02:58 Ur Phencyclidine Scrn NEGATIVE 03/18/19 02:58 Ur Amphetamines Screen NEGATIVE 03/18/19 02:58 U Benzodiazepines Scrn NEGATIVE 03/18/19 02:58 Urine Cocaine Screen NEGATIVE 03/18/19 02:58 U Marijuana (THC) Screen NEGATIVE 03/18/19 02:58 RPR NONREACTIVE (NONREACTIVE) 03/18/19 05:41 Blood Type B NEGATIVE 03/20/19 07:15 Antibody Screen POSITIVE 03/18/19 05:41 Antibody Identification RHOGAM INDUCED ANTI-D 03/18/19 05:41 Screen NEGATIVE 03/20/19 07:15 Plan Health Concerns: routine Plan of Treatment: d/c home with baby Goals: normal pp course Time Spent: Less than 30 Minutes
[2019-03-21 11:47] VITALS: BP 116/63
[2019-03-21] MEDS ORDERED: INFLUENZA QUAD (6MOS+) 2019-20 VAC 0.5 ML SYR IM ONE (13:15)
[2019-03-22] MEDS ORDERED: INFLUENZA QUAD (6MOS+) 2019-20 VAC 0.5 ML SYR IM ONE ×2 (08:00)
== END 2019-03-21 13:40 | disposition home or self-care (01) | DRG 807 ==
LOC: LC 02:52 → LR 04:14 → 2S 03-19 04:40
PROVIDERS: ADMIT Obstetrics & Gynecology Gynecology; ATTEND Obstetrics & Gynecology Gynecology
PROC: 10E0XZZ Delivery of Products of Conception, External Approach (ICD-10-PCS; principal; 2019-03-20)
PROC: 0KQM0ZZ Repair Perineum Muscle, Open Approach (ICD-10-PCS; 2019-03-20)
DX: O99.824 Streptococcus B carrier state complicating childbirth (principal); Z37.0 Single live birth; O26.893 Other specified pregnancy related conditions, third trimester; O42.12 Full-term premature rupture of membranes, onset of labor more than 24 hours following rupture; O66.0 Obstructed labor due to shoulder dystocia; O70.1 Second degree perineal laceration during delivery; Z67.21 Type B blood, Rh negative; Z3A.39 39 weeks gestation of pregnancy
CPT/HCPCS: 36415; 59025; 80307; 81005; 84112; 85025; 85027; 85461; 86592; 86850; 86870; 86900; 86901; 90686; 90707; 90715; J2300; J2405; J2540; J2550; J2590; J2790; J3010; J3490; J7060

== ENCOUNTER 2019-06-06 17:49 | Emergency (ER) | payer MEDICAID ==
[2019-06-06] MEDS ORDERED: TETRACAINE HCL 0.5% OPH SOLN 4 ML OS ONE (18:46)
--- NOTE | 2019-06-06 18:56 | ER Document Report ---
HPI - HPI Patient complains to provider of: Discomfort redness and discharge from the left eye today. Time Seen by Provider: 06/06/19 18:41 Pain Level: 3 Notes: CHIEF COMPLAINT: Left eye redness and drainage today HPI: 29-year-old female presenting to the emergency department complaining of redness and discharge with discomfort to the left eye today. Patient states that she has soft contacts that she wears at home but does not have a new set and has been using her old ones repeatedly. She left the vent for an extended period of time yesterday because she was driving to [place] [facility] and noticed discomfort before she went to bed last night woke up with tearing drainage with redness and discomfort to the left eye. ROS: See HPI - all other systems were reviewed and are otherwise negative Constitutional: no fever or recent illness Eyes: + drainage, no blurred vision ENT: no runny nose, no sore throat Integumentary: no rash MEDICATIONS: I agree with the patient medications as charted by the RN. ALLERGIES: I agree with the allergies as charted by the RN. PAST MEDICAL HISTORY/PAST SURGICAL HISTORY: Reviewed and agree as charted by RN. SOCIAL HISTORY: Reviewed and agree as charted by RN. FAMILY HISTORY: No significant familial comorbid conditions directly related to patient complaint EXAM: Reviewed vital signs as charted by RN. CONSTITUTIONAL: Alert and oriented and responds appropriately to questions. Well-appearing; well-nourished, mild distress secondary to pain HEAD: Normocephalic; atraumatic EYES: PERRL; Conjunctivae left eye, sclerae non-icteric. Clear tearing discharge is noted. There is no visible corneal ulceration or abrasion on wood lamp exam with fluorescein stain. No hyphema. No visible foreign body under the upper or lower lids. ENT: normal nose; no rhinorrhea; moist mucous membranes; pharynx without lesions noted NECK: Supple without meningismus CARD: Capillary refill less than 3 seconds RESP: Normal chest excursion without splinting or tachypnea, ABD/GI: non-distended. BACK: The back appears normal EXT: Normal ROM in all joints; no cyanosis, no effusions, no edema SKIN: Normal color for age and race; warm; dry; good turgor NEURO: Moves all extremities equally; Motor and sensory function intact PSYCH: The patient's mood and manner are appropriate. Grooming and personal hygiene are appropriate. - EENT EENT: REPORTS: Eye problems - REPRODUCTIVE Reproductive: REPORTS: : Past Medical History - Social History Smoking Status: Current Every Day Smoker Cigarette use (# per day): Yes Chew tobacco use (# tins/day): No Smoking Education Provided: No Frequency of alcohol use: Occasional Drug Abuse: None Family History: Reviewed & Not Pertinent Patient has suicidal ideation: No Patient has homicidal ideation: No Neurological Medical History: Denies: Hx Seizures Renal/ Medical History: Denies: Hx Peritoneal Dialysis Psychiatric Medical History: Reports: Hx Attention Deficit Hyperactivity Disorder Past Surgical History: Reports: Hx Appendectomy, Hx Gynecologic Surgery - ectopic, Hx Tonsillectomy. Denies: Hx Hysterectomy, Hx Pacemaker - Immunizations Hx Diphtheria, Pertussis, Tetanus Vaccination: No Vertical Provider Document - INFECTION CONTROL TRAVEL OUTSIDE OF THE [place] IN LAST 30 DAYS: No Course - Re-evaluation Re-evalutation: 06/06/19 18:54 29-year-old female with a likely left conjunctivitis. There does not appear to be a visible corneal ulceration or abrasion at this time. Advised against using old contacts. Nothing in the left eye till infection has resolved. Will place on cipro, short course of pain medication, follow-up PCP or ophthalmology 06/06/19 18:56 - Vital Signs Vital signs: Temp Pulse Resp BP Pulse Ox 99.1 F 95 18 132/72 H 97 06/06/19 18:22 06/06/19 18:22 06/06/19 18:22 06/06/19 18:22 06/06/19 18:22 Discharge - Discharge Clinical Impression: Conjunctivitis, left eye Qualifiers: Conjunctivitis type: acute Condition: Good Disposition: HOME, SELF-CARE Instructions: Conjunctivitis ([facility]) Additional Instructions: Do not use anything in the left eye especially contacts until your infection has resolved. Use the eyedrops as prescribed. Pain medication as prescribed no driving if taking narcotics for pain. Follow-up with primary care provider or with an seeing eye dog trainer for further evaluation Prescriptions: Ciprofloxacin HCl [Ciloxan 0.3% Oph Soln 2.5 ml] 2 drop OS Q6H #1 bottle Hydrocodone/Acetaminophen [[place] 5-325 mg Tablet] 1 tab PO Q4 #10 tablet Referrals: LEXA NINA MD [Primary Care Provider] - Follow up as needed
[2019-06-06 19:56] VITALS: BP 109/64
== END 2019-06-06 19:58 | disposition home or self-care (01) ==
LOC: ER 17:49
DX: O26.899 Other specified pregnancy related conditions, unspecified trimester (principal); H10.9 Unspecified conjunctivitis; O99.330 Smoking (tobacco) complicating pregnancy, unspecified trimester; F17.210 Nicotine dependence, cigarettes, uncomplicated; Z3A.00 Weeks of gestation of pregnancy not specified
CPT/HCPCS: 99282